=== PATIENT | male | born 1930 | race Caucasian/White ===

== ENCOUNTER 2017-01-15 08:00 | Outpatient (CLI) | payer MEDICARE | END 2017-01-15 08:01 | disposition home or self-care (01) | DX: E11.9 Type 2 diabetes mellitus without complications (principal); Z79.899 Other long term (current) drug therapy; E78.2 Mixed hyperlipidemia; I10 Essential (primary) hypertension ==

== ENCOUNTER 2017-03-17 14:31 | Outpatient (CLI) | payer MEDICARE | END 2017-03-17 14:32 | disposition home or self-care (01) | LOC: SC 14:31 | PROVIDERS: ATTEND Specialist | DX: G47.33 Obstructive sleep apnea (adult) (pediatric) (principal); G25.81 Restless legs syndrome | CPT/HCPCS: 99205; G0463; 99212 ==

== ENCOUNTER 2017-04-06 19:39 | Outpatient (CLI) | payer MEDICARE | END 2017-04-06 19:40 | disposition home or self-care (01) | DX: G47.33 Obstructive sleep apnea (adult) (pediatric) (principal); G47.61 Periodic limb movement disorder ==

== ENCOUNTER 2017-04-28 10:42 | Outpatient (CLI) | payer MEDICARE | END 2017-04-28 10:43 | disposition home or self-care (01) | LOC: SC 10:42 | PROVIDERS: ATTEND Specialist | DX: G47.33 Obstructive sleep apnea (adult) (pediatric) (principal); G47.61 Periodic limb movement disorder; G25.81 Restless legs syndrome; G47.00 Insomnia, unspecified | CPT/HCPCS: 99214; G0463; 99212 ==

== ENCOUNTER 2017-05-11 11:47 | Outpatient (CLI) | payer MEDICARE ==
--- NOTE | 2017-05-11 13:54 | XRAY Report ---
FRONTAL PELVIS: 05/11/2017 CLINICAL INDICATION: Pain. FINDINGS: Frontal views of the pelvis demonstrate mild bilateral hip osteoarthritis. There is no ev idence of pelvic fracture. The sacral ala appear unremarkable. IMPRESSION: MILD OSTEOARTHRITIS. NO EVIDENCE OF FRACTURE. JOB #: [id number] EXT JOB #:[id number]
--- NOTE | 2017-05-11 13:59 | XRAY Report ---
COMPLETE LUMBAR SPINE: 05/11/2017 CLINICAL INDICATION: Back pain. FINDINGS: AP, lateral oblique, coned-down views of the lumbar spine are compared to previous films o f 01/30/2012. There has been progression of degenerative disk and facet disease. Disk space narrowi ng is worst at L5-S1. Vascular calcifications are again noted. No compression fracture or subluxati on is identified. IMPRESSION: PROGRESSION OF DEGENERATIVE CHANGES. JOB #: [id number] EXT JOB #:[id number]
== END 2017-05-11 11:48 | disposition home or self-care (01) ==
LOC: DI.N 11:47
PROVIDERS: ATTEND Internal Medicine
DX: M47.896 Other spondylosis, lumbar region (principal); M51.36 Other intervertebral disc degeneration, lumbar region; M51.37 Other intervertebral disc degeneration, lumbosacral region; M16.0 Bilateral primary osteoarthritis of hip
CPT/HCPCS: 72110; 72170

== ENCOUNTER 2017-05-25 19:32 | Outpatient (CLI) | payer MEDICARE | END 2017-05-25 19:33 | disposition home or self-care (01) | LOC: SC 19:32 | PROVIDERS: ATTEND Specialist | DX: G47.33 Obstructive sleep apnea (adult) (pediatric) (principal); G47.61 Periodic limb movement disorder | CPT/HCPCS: 95811 ==

== ENCOUNTER 2017-06-16 11:19 | Outpatient (CLI) | payer MEDICARE | END 2017-06-16 11:20 | disposition home or self-care (01) | LOC: SC 11:19 | PROVIDERS: ATTEND Specialist | DX: G47.33 Obstructive sleep apnea (adult) (pediatric) (principal); G25.81 Restless legs syndrome; G47.00 Insomnia, unspecified | CPT/HCPCS: 99214; G0463; 99212 ==

== ENCOUNTER 2017-07-28 10:32 | Outpatient (CLI) | payer MEDICARE | END 2017-07-28 10:33 | disposition home or self-care (01) | LOC: SC 10:32 | PROVIDERS: ATTEND Specialist | DX: G47.33 Obstructive sleep apnea (adult) (pediatric) (principal); G25.81 Restless legs syndrome | CPT/HCPCS: 99214; G0463; 99212 ==

== ENCOUNTER 2017-08-20 10:50 | Outpatient (CLI) | payer MEDICARE | END 2017-08-20 10:51 | disposition home or self-care (01) | LOC: LAB.R 10:50 | PROVIDERS: ATTEND Physician Assistant Medical | DX: K13.70 Unspecified lesions of oral mucosa (principal); D64.9 Anemia, unspecified | CPT/HCPCS: 85025; 87070; 87205 ==

== ENCOUNTER 2017-08-20 10:56 | Outpatient (CLI) | payer MEDICARE ==
[2017-08-20 15:30] LABS: BASOPHILS % (AUTO) 0.4 %; EOSINOPHILS % (AUTO) 0.5 %; HGB - HEMOGLOBIN 12.9 g/dL (14.0-18.0); LYMPHOCYTES # (AUTO) 0.9 10^3/uL (1.5-3.5); MEAN CORPUSCULAR HEMOGLOBIN 30.4 pg (27.0-31.0); MEAN CORPUSCULAR VOLUME 89.4 fL (80.0-94.0); MONOCYTES # (AUTO) 0.7 10^3/uL (0.0-1.0); MONOCYTES % (AUTO) 15.8 %; NEUTROPHILS % (AUTO) 64.3 %; RED BLOOD COUNT 4.25 10^6/uL (4.70-6.10); RED CELL DISTRIBUTION WIDTH 13.3 % (12.0-15.0); UNCORRECTED WHITE BLOOD COUNT 4.6 x10^3/uL; WHITE BLOOD COUNT 4.6 x10^3/uL (4.8-10.8)
== END 2017-08-20 10:57 | disposition home or self-care (01) ==
LOC: LAB.R 10:56
PROVIDERS: ATTEND Internal Medicine
DX: D64.9 Anemia, unspecified (principal)
CPT/HCPCS: 85025

== ENCOUNTER 2018-03-02 13:36 | Outpatient (CLI) | payer MEDICARE ==
[2018-03-02 19:22] LABS: BASOPHILS % (AUTO) 0.4 %; EOSINOPHILS # (AUTO) 0.2 10^3/uL (0.0-0.7); EOSINOPHILS % (AUTO) 3.5 %; HGB - HEMOGLOBIN 12.4 g/dL (14.0-18.0); LYMPHOCYTES # (AUTO) 1.6 10^3/uL (1.5-3.5); LYMPHOCYTES % (AUTO) 30.5 %; MEAN CORPUSCULAR HEMOGLOBIN 30.3 pg (27.0-31.0); MEAN CORPUSCULAR HGB CONC 33.7 g/dL (32.0-36.0); MEAN CORPUSCULAR VOLUME 89.8 fL (80.0-94.0); MEAN PLATELET VOLUME 8.1 fL (7.4-11.4); MONOCYTES # (AUTO) 0.4 10^3/uL (0.0-1.0); MONOCYTES % (AUTO) 8.6 %; PLT - PLATELET COUNT 215 10^3/uL (130-450); RED BLOOD COUNT 4.09 10^6/uL (4.70-6.10); RED CELL DISTRIBUTION WIDTH 14.1 % (12.0-15.0); WHITE BLOOD COUNT 5.2 x10^3/uL (4.8-10.8)
[2018-03-02 19:38] LABS: ALBUMIN 3.9 g/dL (3.2-5.5); ALBUMIN/GLOBULIN RATIO 1.4 (1.0-2.2); ALKALINE PHOSPHATASE 61 IU/L (42-121); ALT ALANINE AMINOTRANSFERASE 15 IU/L (10-60); AST ASPARTATE AMINOTRANSFERASE 20 IU/L (10-42); BILIRUBIN,TOTAL 0.7 mg/dL (0.2-1.0); BUN - BLOOD UREA NITROGEN 25 mg/dL (6-20); CALCIUM 9.1 mg/dL (8.5-10.3); CARBON DIOXIDE - CO2 28 mmol/L (21-32); CHLORIDE 105 mmol/L (101-111); CHOL/HDL RATIO 3.4 (<5.0); CHOLESTEROL 176 mg/dL; GFR - MDRD 71 (>89); GLUCOSE 99 mg/dL (70-100); HDL CHOLESTEROL 52 mg/dL; LDL CHOLESTEROL,CALCULATED 112 mg/dL; LDL/HDL RATIO 2.2 (<3.6); SODIUM 139 mmol/L (135-145); TOTAL PROTEIN 6.6 g/dL (6.7-8.2); VLDL CHOLESTEROL 12 mg/dL
[2018-03-02 19:58] LABS: HB2 TOTAL 13.8 g/dL; HEMOGLOBIN A1C 0.56 g/dL; HEMOGLOBIN A1C % 5.9 % (4.6-6.2)
== END 2018-03-02 13:37 | disposition home or self-care (01) ==
LOC: LAB.N 13:36
PROVIDERS: ATTEND Internal Medicine
DX: I45.2 Bifascicular block (principal); I12.9 Hypertensive chronic kidney disease with stage 1 through stage 4 chronic kidney disease, or unspecified chronic kidney disease; N18.9 Chronic kidney disease, unspecified; E88.81 Metabolic syndrome and other insulin resistance; D64.9 Anemia, unspecified; E78.5 Hyperlipidemia, unspecified; M1A.9XX0 Chronic gout, unspecified, without tophus (tophi); Z79.899 Other long term (current) drug therapy
CPT/HCPCS: 36415; 80053; 80061; 83036; 83721; 84443; 84550; 85025

== ENCOUNTER 2018-09-08 08:00 | Outpatient (CLI) | payer MEDICARE ==
[2018-09-08 13:53] LABS: BASOPHILS % (AUTO) 0.5 %; EOSINOPHILS # (AUTO) 0.2 10^3/uL (0.0-0.7); EOSINOPHILS % (AUTO) 5.5 %; HGB - HEMOGLOBIN 13.3 g/dL (14.0-18.0); LYMPHOCYTES # (AUTO) 0.9 10^3/uL (1.5-3.5); LYMPHOCYTES % (AUTO) 27.8 %; MEAN CORPUSCULAR HGB CONC 35.1 g/dL (32.0-36.0); MEAN CORPUSCULAR VOLUME 90.9 fL (80.0-94.0); MEAN PLATELET VOLUME 7.9 fL (7.4-11.4); MONOCYTES # (AUTO) 0.5 10^3/uL (0.0-1.0); MONOCYTES % (AUTO) 13.9 %; NEUTROPHILS # (AUTO) 1.8 10^3/uL (1.5-6.6); NEUTROPHILS % (AUTO) 52.3 %; PLT - PLATELET COUNT 225 10^3/uL (130-450); RED BLOOD COUNT 4.15 10^6/uL (4.70-6.10); RED CELL DISTRIBUTION WIDTH 14.3 % (12.0-15.0); WHITE BLOOD COUNT 3.4 x10^3/uL (4.8-10.8)
[2018-09-08 14:08] LABS: HB2 TOTAL 13.8 g/dL; HEMOGLOBIN A1C 0.5 g/dL; HEMOGLOBIN A1C % 5.5 % (4.6-6.2)
[2018-09-08 14:09] LABS: CALCIUM 9.1 mg/dL (8.5-10.3); CREATININE 1.1 mg/dL (0.6-1.2)
== END 2018-09-08 23:59 | disposition home or self-care (01) ==
LOC: LAB.N 08:00
PROVIDERS: ATTEND Internal Medicine
DX: D64.9 Anemia, unspecified (principal); I10 Essential (primary) hypertension; E88.81 Metabolic syndrome and other insulin resistance; Z79.899 Other long term (current) drug therapy
CPT/HCPCS: 36415; 80048; 83036; 85025

== ENCOUNTER 2019-05-12 08:00 | Outpatient (CLI) | payer MEDICARE ==
[2019-05-12 12:08] LABS: BASOPHILS % (AUTO) 0.5 %; EOSINOPHILS # (AUTO) 0.2 10^3/uL (0.0-0.7); EOSINOPHILS % (AUTO) 4.8 %; HGB - HEMOGLOBIN 11.9 g/dL (14.0-18.0); LYMPHOCYTES % (AUTO) 22.9 %; MEAN CORPUSCULAR HEMOGLOBIN 29.8 pg (27.0-31.0); MEAN CORPUSCULAR HGB CONC 32.4 g/dL (32.0-36.0); MEAN PLATELET VOLUME 9.7 fL (7.4-11.4); MONOCYTES # (AUTO) 0.5 10^3/uL (0.0-1.0); MONOCYTES % (AUTO) 10.6 %; NEUTROPHILS # (AUTO) 2.7 10^3/uL (1.5-6.6); PLT - PLATELET COUNT 202 10^3/uL (130-450); RED BLOOD COUNT 3.99 10^6/uL (4.70-6.10); RED CELL DISTRIBUTION WIDTH 13.1 % (12.0-15.0); WHITE BLOOD COUNT 4.4 x10^3/uL (4.8-10.8)
[2019-05-12 12:34] LABS: ALBUMIN 3.8 g/dL (3.2-5.5); ALBUMIN/GLOBULIN RATIO 1.5 (1.0-2.2); ALKALINE PHOSPHATASE 56 IU/L (42-121); ALT ALANINE AMINOTRANSFERASE 17 IU/L (10-60); AST ASPARTATE AMINOTRANSFERASE 20 IU/L (10-42); BILIRUBIN,TOTAL 1.2 mg/dL (0.2-1.0); BUN - BLOOD UREA NITROGEN 18 mg/dL (6-20); CALCIUM 9.3 mg/dL (8.5-10.3); CARBON DIOXIDE - CO2 29 mmol/L (21-32); CHLORIDE 104 mmol/L (101-111); CHOL/HDL RATIO 3.3 (<5.0); CHOLESTEROL 204 mg/dL; CREATININE 1.2 mg/dL (0.6-1.2); GFR - MDRD 57 (>89); GLUCOSE 95 mg/dL (70-100); HDL CHOLESTEROL 61 mg/dL; LDL CHOLESTEROL,CALCULATED 130 mg/dL; LDL/HDL RATIO 2.1 (<3.6); SODIUM 143 mmol/L (135-145); TOTAL PROTEIN 6.4 g/dL (6.7-8.2); URIC ACID 6.4 mg/dL (2.6-7.2); VLDL CHOLESTEROL 13 mg/dL
[2019-05-12 12:35] LABS: HB2 TOTAL 12.7 g/dL; HEMOGLOBIN A1C 0.55 g/dL; HEMOGLOBIN A1C % 6.1 % (4.6-6.2)
== END 2019-05-12 23:59 | disposition home or self-care (01) ==
LOC: LAB.N 08:00
PROVIDERS: ATTEND Nurse Practitioner
DX: I45.2 Bifascicular block (principal); D64.9 Anemia, unspecified; E88.81 Metabolic syndrome and other insulin resistance; M1A.9XX0 Chronic gout, unspecified, without tophus (tophi); N18.9 Chronic kidney disease, unspecified; E78.5 Hyperlipidemia, unspecified
CPT/HCPCS: 36415; 80053; 80061; 83036; 83721; 84443; 84550; 85025

== ENCOUNTER 2020-12-04 09:14 | Outpatient (CLI) | payer MEDICARE, OTHER ==
[2020-12-04 12:37] LABS: BASOPHILS % (AUTO) 0.2 %; EOSINOPHILS # (AUTO) 0.2 10^3/uL (0.0-0.7); EOSINOPHILS % (AUTO) 4.4 %; HCT - HEMATOCRIT 40.8 % (42.0-52.0); HGB - HEMOGLOBIN 13.4 g/dL (14.0-18.0); LYMPHOCYTES # (AUTO) 1.3 10^3/uL (1.5-3.5); LYMPHOCYTES % (AUTO) 30.5 %; MEAN CORPUSCULAR HEMOGLOBIN 30.8 pg (27.0-31.0); MEAN CORPUSCULAR HGB CONC 32.8 g/dL (32.0-36.0); MEAN CORPUSCULAR VOLUME 93.8 fL (80.0-94.0); MEAN PLATELET VOLUME 9.8 fL (7.4-11.4); MONOCYTES # (AUTO) 0.5 10^3/uL (0.0-1.0); MONOCYTES % (AUTO) 12.4 %; NEUTROPHILS # (AUTO) 2.3 10^3/uL (1.5-6.6); NEUTROPHILS % (AUTO) 52.3 %; PLT - PLATELET COUNT 235 10^3/uL (130-450); RED BLOOD COUNT 4.35 10^6/uL (4.70-6.10); WHITE BLOOD COUNT 4.4 x10^3/uL (4.8-10.8)
[2020-12-04 12:55] LABS: ALBUMIN 4.1 g/dL (3.2-5.5); ALBUMIN/GLOBULIN RATIO 1.5 (1.0-2.2); ALKALINE PHOSPHATASE 70 IU/L (42-121); ALT ALANINE AMINOTRANSFERASE 15 IU/L (10-60); AST ASPARTATE AMINOTRANSFERASE 20 IU/L (10-42); BUN - BLOOD UREA NITROGEN 26 mg/dL (6-20); CALCIUM 9.5 mg/dL (8.5-10.3); CARBON DIOXIDE - CO2 29 mmol/L (21-32); CHLORIDE 102 mmol/L (101-111); CHOL/HDL RATIO 3.3 (<5.0); CHOLESTEROL 213 mg/dL; CREATININE 1.4 mg/dL (0.6-1.2); GFR - MDRD 48 (>89); GLUCOSE 100 mg/dL (70-100); HDL CHOLESTEROL 64 mg/dL; LDL CHOLESTEROL,CALCULATED 134 mg/dL; LDL/HDL RATIO 2.1 (<3.6); POTASSIUM 4.3 mmol/L (3.5-5.0); SODIUM 140 mmol/L (135-145); TOTAL PROTEIN 6.9 g/dL (6.7-8.2); TRIGLYCERIDES 77 mg/dL; URIC ACID 6.9 mg/dL (2.6-7.2); VLDL CHOLESTEROL 15 mg/dL
[2020-12-04 13:20] LABS: THYROID STIMULATING HORMONE 1.15 uIU/mL (0.34-5.60)
== END 2020-12-04 09:15 | disposition home or self-care (01) ==
LOC: LAB.N 09:14
PROVIDERS: ATTEND Family Medicine
DX: I10 Essential (primary) hypertension (principal); E78.5 Hyperlipidemia, unspecified; R00.1 Bradycardia, unspecified; D64.9 Anemia, unspecified; M1A.9XX0 Chronic gout, unspecified, without tophus (tophi)
CPT/HCPCS: 36415; 80053; 80061; 83721; 84443; 84550; 85025

== ENCOUNTER 2021-06-13 17:24 | Inpatient (IN) | payer MEDICARE, OTHER ==
[2021-06-13 18:48] LABS: BASOPHILS % (AUTO) 0.2 %; HCT - HEMATOCRIT 39.6 % (42.0-52.0); HGB - HEMOGLOBIN 13.8 g/dL (14.0-18.0); LYMPHOCYTES # (AUTO) 0.6 10^3/uL (1.5-3.5); MEAN CORPUSCULAR HEMOGLOBIN 30.7 pg (27.0-31.0); MEAN CORPUSCULAR HGB CONC 34.8 g/dL (32.0-36.0); MONOCYTES # (AUTO) 0.3 10^3/uL (0.0-1.0); MONOCYTES % (AUTO) 4.1 %; NEUTROPHILS # (AUTO) 5.2 10^3/uL (1.5-6.6); NEUTROPHILS % (AUTO) 84.9 %; PLT - PLATELET COUNT 238 10^3/uL (130-450); RED CELL DISTRIBUTION WIDTH 40.3 % (12.0-15.0); WHITE BLOOD COUNT 6.1 x10^3/uL (4.8-10.8)
--- NOTE | 2021-06-13 19:09 | XRAY Report ---
PROCEDURE: Chest 1 View X-Ray INDICATIONS: chest pain TECHNIQUE: One view of the chest was acquired. COMPARISON: None FINDINGS: Surgical changes and devices: None. Lungs and pleura: No pleural effusions or pneumothorax. Lungs are clear. Mediastinum: Mediastinal contours appear normal. Heart size is normal. Bones and chest wall: No suspicious bony lesions. Overlying soft tissues appear unremarkable. IMPRESSION: Diffuse bilateral airspace opacities are present. The appearance is consistent with a di ffuse infectious process or CHF. Chronic changes are also possible, however no prior images are avail able for comparison. Reviewed by: Asael Viramontes on 06/13/2021 7:08 PM PDT Approved by: Asael Viramontes on 06/13/2021 7:08 PM PDT Station ID: [id number]
[2021-06-13 19:35] LABS: BILIRUBIN,TOTAL 1.4 mg/dL (0.2-1.0); CALCIUM 8.6 mg/dL (8.5-10.3); CREATININE 1.5 mg/dL (0.6-1.2); POTASSIUM 4.1 mmol/L (3.5-5.0)
[2021-06-13 19:36] LABS: ALBUMIN 3.3 g/dL (3.2-5.5); ALBUMIN/GLOBULIN RATIO 0.9 (1.0-2.2); TOTAL PROTEIN 6.9 g/dL (6.7-8.2)
[2021-06-13] MEDS ORDERED: AZITHROMYCIN INJ 500 MG in SODIUM CHLORIDE 0.9% 250 ML IV STA (19:43)
[2021-06-13] MEDS ORDERED: oxyCODONE 5 MG TABLET PO PRN (19:48)
[2021-06-13] MEDS ORDERED: ACETAMINOPHEN 325 MG TABLET PO PRN (19:48)
[2021-06-13] MEDS ORDERED: ONDANSETRON ODT 4 MG TABLET TL PRN (19:48)
[2021-06-13] MEDS ORDERED: SODIUM CHLORIDE FLUSH 0.9% 10 ML SYRINGE IVP PRN (19:48)
[2021-06-13] MEDS ORDERED: ONDANSETRON 4 MG/2 ML VIAL IVP PRN (19:48)
[2021-06-13 20:09] LABS: CORONAVIRUS 229E-RESP PCR NOT DETECTED; CORONAVIRUS HKU1-RESP PCR NOT DETECTED; CORONAVIRUS NL63-RESP PCR NOT DETECTED; CORONAVIRUS OC43-RESP PCR NOT DETECTED
[2021-06-13 20:10] LABS: B. PARAPERTUSSIS- RESP PCR PAN NOT DETECTED; B. PERTUSSIS- RESP PCR PANEL NOT DETECTED; C. PNEUMONIAE- RESP PCR PANEL NOT DETECTED; HUMAN METAPNEUMOVIRUS NOT DETECTED; INFLUENZA A- RESP PCR PANEL NOT DETECTED; INFLUENZA B - RESP PCR PANEL NOT DETECTED; M. PNEUMONIAE- RESP PCR PANEL NOT DETECTED; PARAINFLUENZA VIRUS 1 NOT DETECTED; PARAINFLUENZA VIRUS 2 NOT DETECTED; PARAINFLUENZA VIRUS 3 NOT DETECTED; PARAINFLUENZA VIRUS 4 NOT DETECTED; RHINOVIRUS/ENTEROVIRUS NOT DETECTED; RSV- RESP PCR PANEL NOT DETECTED; SARS-CoV-2 -RESP PCR PANEL DETECTED
[2021-06-13] MEDS ORDERED: LACTATED RINGERS 1,000 ML IV ONE (21:32)
--- NOTE | 2021-06-13 21:37 | HISTORY & PHYSICAL EXAMINATION ---
Chief Complaint - Chief Complaint Chief Complaint: cough, fatigue, sob History of Present Illness - Admitted From Admitted From:: home - History Obtained From Records Reviewed: [facility] History obtained from: [facility] Exam Limitations: patient is demented, sob - History of Present Illness HPI Comment/Other: This is an 89-year-old white male who has been to his second for about a year. He has a history of mild cognitive deficit that has been getting worse over the last 2 weeks. He has been ill with chest congestion, cough, fatigue, myalgias and has been getting so short of breath his sent him to the emergency room today. he's getting confused and he can't find his words. No focal deficits or falls. His obtained invermectin and quinine from a [employer] store and has been giving it to him for approximately 4 to 5 days. He is unvaccinated because he doesn't trust the science behind them. Evaluation in the emergency room has a temperature of 37.8, heart rate of 66, blood pressure 148/99, respiratory rate 22 and he is 85% on room air. He is requiring 4 L to maintain O2 sats at 95%. Nurse practitioner Saúl found him alert but with labored breathing. Does not have distress. Lungs are clear bilaterally. He has a regular rate and rhythm with a 3 out of 5 systolic murmur. Skin color is warm, dry. Sodium is 132. BUN 28, creatinine 1.5. His usual is 1.2. Total bili 1.4. AST 48. Troponin 22.9. White cell count is 6.1, hemoglobin 13.8. Chest x-ray has bilateral alveolar infiltrates compatible with either pneumonia or congestive heart failure. His PCR for Covid 19 is pending. Emergency room is asking us to admit this patient for probable Covid pneumonia or viral pneumonia. History - Past Medical History Cardiovascular: reports: Hypertension, High cholesterol, Arrhythmia (chronic RBBB w LAFB, bradycardia), Other (morbid obesity, chronic leg edema) Respiratory: reports: Sleep apnea, CPAP use, Tuberculosis (Positive PPD) Neuro: reports: Dementia, Other (restless leg syndrome For which he takes carbidopa he says) Endocrine/Autoimmune: reports: Other (insulin resistence w A1c 6.1%) GI: reports: GERD, Hemorrhoids. denies: Diverticulitis (Diverticulosis) : reports: Benign prostate hypertrophy, Renal insuffiency HEENT: reports: Other (Chronic allergic rhinitis) Musculoskeletal: reports: Gout, Other (osteoma frontal bone) Derm: reports: Herpes zoster, Other (Skin cancer with excisions) - Past Surgical History General: reports: Other (Right inguinal hernia age 15, hemorhoidectomy 2007) Ortho: reports: Other (R ankle ORIF, L elbow ORIF, L leg bone spur age 20, L hand ORIF 1974) Derm: reports: Skin cancer surgery, Other (lipoma excision 2003) - Family & Social History Family History Comment/Other: Mother age 62 of pulmonary embolus. Had multiple medical problems that he could not remember. Dad in a motor veh icle accident with a broken neck. Also had multiple medical problems that he cannot remember. Sister had breast cancer. 1 Son was stillborn. 1 son age 13 of pneumonia. 1 daughter in a motor vehicle accident. 2 daughters still alive and healthy Living arrangement: At home Living Situation: With spouse/s.o. Social History Notes: He is retired . Came to the [place] because he was stationed here and then never left. to his first for close to 64 years before she . He met his second in the same [place] that his first and he used to go to. He and his second have been a little over a year. They live in their own home. He never smoked. He states that he never had a problem with alcohol abuse and rarely drinks. No history of recreational substance abuse - Substance History Use: Uses substance without health or social issues: NONE Abuse: Recurrent use of substance despite neg consequences: NONE Dependence: Experiences withdrawal or developed tolerances: NONE - POLST Patient has POLST: No POLST Status: Full Code Meds/Allgy - Home Medications Home Medications: Ambulatory Orders Medication Instructions Recorded Confirmed Carbidopa/Levodopa 1 each PO HS 07/11/13 02/13/15 [Carbidopa-Levodopa 25-100 Tab] Esomeprazole Magnesium [Nexium] 40 mg PO DAILY 07/11/13 02/13/15 Finasteride 5 mg PO DAILY 07/11/13 02/13/15 Pravastatin Sodium [Pravachol] 40 mg PO HS 07/11/13 02/13/15 Metoprolol Tartrate 25 mg PO BID 02/13/15 02/13/15 - Allergies Allergies/Adverse Reactions: Allergies Allergy/AdvReac Type Severity Reaction Status Date / Time bacitracin Allergy Rash Verified 06/13/21 17:47 [From Neosporin ([id number])] bacitracin zinc * Allergy Rash Verified 06/13/21 17:47 [From Neosporin ([id number])] Horse/Equine Containing Allergy Rash Verified 06/13/21 17:47 Products neomycin sulfate * Allergy Rash Verified 06/13/21 17:47 [From Neosporin ([id number])] polymyxin B Allergy Rash Verified 06/13/21 17:47 [From Neosporin ([id number])] Review of Systems - Constitutional Constitutional: reports: Fatigue, Fever, Malaise, Weakness, Poor appetite - Eyes Eyes: reports: Corrective lenses. denies: Pain, Irritation, Amaurosis, Blurred vision - Ears, Nose & Throat Ears, Nose & Throat: reports: Hearing loss, Nasal discharge, Postnasal drainage, Sore throat, Hoarseness. denies: Ear pain, Hearing aids, Tinnitus, Vertigo - Cardiovascular Cariovascular: reports: Edema, Exertional dyspnea, Decr. exercise tolerance. denies: Irregular heart rate, Palpitations, Chest pain - Respiratory Respiratory: reports: Cough, Sputum production, Wheezing, Snoring, SOB at rest, SOB with exertion, Apnea. denies: Hemoptysis - Gastrointestinal Gastrointestinal: denies: Abdominal pain, Abdominal distention, Constipation, Diarrhea, Change in bowel habits, Rectal bleeding - Genitourinary Genitourinary: denies: Dysuria, Frequency, Urgency - Musculoskeletal Musculoskeletal: reports: Muscle aches, Stiffness. denies: Joint pain - Integumentary Integumentary: denies: Rash, Pruritis - Neurological Neurological: reports: General weakness, Memory problems (worsening acutely in the last 2 weeks. 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 negative: Stiff neck Respiratory: positive: No respiratory distress. negative: Wheezes, Rales, Rhonchi Cardiovascular: positive: Regular rate & rhythm, Systolic murmur. negative: Gallop/S4, Friction rub Peripheral Pulses: positive: 1+ Abdomen: positive: Non-tender, No organomegaly, Nml bowel sounds, No distention Skin: positive: Warm, Dry, Pallor Extremities: positive: Full ROM, Pedal edema Neurologic/Psychiatric: positive: Oriented x3, CN's nml (2-12), Motor nml, Sensation nml, Slurred/abnml speech (Occasional word hesitancy. Stops in mid sentence and cannot remember what he wants to say. Sometimes cannot remember the word he wants to use. Sometimes forgetful of the date, and cannot pinpoint in time what is been happening.) Conclusion/Plan - Problem List (1) COVID-19 virus infection Conclusion/Plan: Presenting as cough, shortness of breath, fatigue, confusion. Some hypoxia. Plan: Inpatient status Remdesivir 5 days Decadron 10 days Lovenox for DVT prophylaxis (2) Hypoxia Conclusion/Plan: Started with nasal cannula oxygen. That seems to be maintaining him well. I did discuss advance care planning with him. I did describe worsening respiratory failure and some Covid patients. He is willing to have high flow nasal cannula, BiPAP, and intubation if necessary. I have explained to him that if we were unsuccessful in maintaining his O2 sats with appropriate ventilator s ettings here, he may need transfer to the [facility] and he is okay with that. (3) Acute kidney injury superimposed on chronic kidney disease Conclusion/Plan: Baseline creatinine and GFR usually have about chronic kidney disease stage III. Creatinine slightly worse today. May have some dehydration due to lack of p.o. intake and anorexia. Plan: IV fluids Recheck BMP in the morning (4) Cognitive deficits Conclusion/Plan: Daughter had spoken to the emergency room provider to say the data been having some cognitive decline over the last year but more severe over the last couple of weeks. Daughter has been very concerned about his care with his new . She states that she will be filing an Adult Protective Services request for evaluation. On roldan's exam, he is aware of where he is but cannot tell me what brings him here. He is able to describe that he is sick, has some type of infection but cannot find a work for Covid. Throughout his exam, frequent pauses as he struggled to find a word and could not. Or struggle to complete a sentence and could not. However he was able to hear me and process and follow my 1-2 step commands when necessary. (5) Elevated troponin Conclusion/Plan: Repeat troponins in a few hours, and in the morning.Anticipate that these troponins will be flat or declining and most likely due to enzyme leak and not a cardiac event. (6) Obstructive sleep apnea on CPAP Conclusion/Plan: He does not know if he brought with him. I will have to ask nursing over the emergency room of any equipment came with him. He also admits that he does not like using the mask and he does not know if he would comply with that when he went to sleep. He does not mind the oxygen were giving him by nasal cannula. (7) Hypertension Conclusion/Plan: For which she takes a beta-leonor. We will resume metoprolol but hold it if his pulse gets below 60. Qualifiers: Hypertension type: primary hypertension Qualified Code(s): I10 - Essential (primary) hypertension (8) Restless leg syndrome Conclusion/Plan: Resume home meds (9) BPH (benign prostatic hyperplasia) Conclusion/Plan: resume finasterid Qualifiers: Lower urinary tract symptom presence: symptoms present - Lab Results Lab results reviewed: Yes Fish Bones: 06/13/21 18:31 06/13/21 18:31 - Diagnostic Imaging Results Diagnostic Imaging Results: positive: Final report reviewed Diagnostic Imaging Results Comments: Chest x-ray with diffuse bilateral airspace opacities. No other images available for comparison Core Measures - Anticipated LOS I expect patient to be DC'd or transferred within 96 hours.: Yes - DVT/VTE - Prophylaxis VTE/DVT Device ordered at admit?: Yes
--- NOTE | 2021-06-13 21:37 | ED Physician Documentation ---
History of Present Illness - Stated complaint Stated Complaint: BODY PX/SORE THROAT/HEADACHE - Chief complaint Chief Complaint: Resp - Additonal information Additional information: 89-year-old male presents the emergency department for evaluation of nearly 1 week of cough, congestion and shortness of air. He feels like his oxygen levels are low though he does not have the ability to test at home. He has not yet been vaccinated for COVID-19 because he simply does not believe in it. This gentleman presents alert but labored. On room air his saturations are 85%. 4 L nasal cannula improves him to 90 to 91%. He is denying chest pain. No abdominal pain nausea or vomiting. Denies loss of taste or smell. Medical history most significant for hyperlipidemia and hypertension. He denies history of coronary artery disease or previous stroke, COPD or asthma. No tobacco use 1939: I have spoken with the patient's daughter Estefany Dawn Who reports to this provider that she and her sister are making an [facility]. They are concerned because though the patient is not vaccinated for COVID-19 his has been giving him quinine as well as ivermectin obtained from an agriculture store at home for at least the last few days. Review of Systems Constitutional: reports: Fever, Chills, Myalgias, Fatigue Eyes: reports: Reviewed and negative Ears: reports: Reviewed and negative Nose: reports: Congestion Throat: reports: Reviewed and negative Cardiac: reports: Palpitations. denies: Pedal edema, Calf pain Respiratory: reports: Dyspnea, Cough. denies: Hemoptysis, Wheezing GI: denies: Abdominal Pain, Nausea, Vomiting : reports: Reviewed and negative Skin: reports: Reviewed and negative PD PAST MEDICAL HISTORY - Past Medical History Cardiovascular: Hypertension, High cholesterol GI: GERD - Past Surgical History Past Surgical History: Yes - Present Medications Home Medications: Ambulatory Orders Medication Instructions Recorded Confirmed Carbidopa/Levodopa 1 each PO HS 07/11/13 02/13/15 [Carbidopa-Levodopa 25-100 Tab] Esomeprazole Magnesium [Nexium] 40 mg PO DAILY 07/11/13 02/13/15 Finasteride 5 mg PO DAILY 07/11/13 02/13/15 Pravastatin Sodium [Pravachol] 40 mg PO HS 07/11/13 02/13/15 Metoprolol Tartrate 25 mg PO BID 05/12/15 05/12/15 - Allergies Allergies/Adverse Reactions: Allergies Allergy/AdvReac Type Severity Reaction Status Date / Time bacitracin Allergy Rash Verified 06/13/21 17:47 [From Neosporin ([id number])] bacitracin zinc * Allergy Rash Verified 06/13/21 17:47 [From Neosporin ([id number])] Horse/Equine Containing Allergy Rash Verified 06/13/21 17:47 Products neomycin sulfate * Allergy Rash Verified 06/13/21 17:47 [From Neosporin ([id number])] polymyxin B Allergy Rash Verified 06/13/21 17:47 [From Neosporin ([id number])] - Social History Does the pt smoke?: No Smoking Status: Never smoker Does the pt drink ETOH?: Yes Does the pt have substance abuse?: No - Immunizations Immunizations are current?: Yes PD ED PE EXPANDED - General General: Alert - Neck Neck: Supple w/out meningeal sx. No: Adenopathy - Cardiac Cardiac: Regular Rate, Murmur Present (3/5 systolic murmur), Radial strong equal, Cap refill < 2 sec - Respiratory Respiratory: Clear to ausultation michelle. No: Distress, Labored - Abdomen Abdomen: Normal Bowel sounds. No: Tender to palpation - Derm Derm: Normal color, Warm and dry. No: Rash - Extremities Extremities: Normal. No: Deformity, Tenderness Results - Vitals Vitals: Vital Signs - 24 hr 06/13/21 06/13/21 06/13/21 17:39 18:34 20:00 Temperature 37.8 C Heart Rate 66 52 L 50 L Respiratory 22 14 16 Rate Blood Pressure 148/99 H 118/62 115/69 O2 Saturation 85 L 95 98 Oxygen O2 Source Nasal cannula Oxygen Flow Rate 4 - EKG (time done) 1823 Rate: Rate (enter#) (54) Rhythm: NSR [place]: Normal Intervals: Prolonged UT, Prolonged QT, RBBB QRS: LVH Ischemia: Normal ST segments Compare to prior EKG: Changed from prior EKG Computer interpretation: Agree with computer - Labs Labs: Laboratory Tests 06/13/21 06/13/21 06/13/21 18:31 18:31 18:31 WBC 6.1 RBC 4.50 L Hgb 13.8 L Hct 39.6 L MCV 88.0 MCH 30.7 MCHC 34.8 RDW 40.3 H Plt Count 238 MPV 9.0 Neut # (Auto) 5.2 Lymph # (Auto) 0.6 L [place] # (Auto) 0.3 Eos # (Auto) 0.0 Baso # (Auto) 0.0 Absolute Nucleated RBC 0.00 Nucleated RBC % 0.0 Sodium 132 L Potassium 4.1 Chloride 94 L Carbon Dioxide 26 Anion Gap 12.0 BUN 28 H Creatinine 1.5 H Estimated GFR (MDRD) 44 L Glucose 122 H Calcium 8.6 Total Bilirubin 1.4 H AST 48 H ALT 27 Alkaline Phosphatase 48 Troponin I High Sens 22.9 H* Total Protein 6.9 Albumin 3.3 Globulin 3.6 Albumin/Globulin Ratio 0.9 L Lipase 67 H Nasal Adenovirus (PCR) Nasal B. parapertussis DNA (PCR) Nasal Coronavir 229E PCR Nasal Coronavir HKU1 PCR Nasal Coronavir NL63 PCR Nasal Coronavir OC43 PCR Nasal Enterovir/Rhinovir PCR Nasal Influenza B PCR Nasal Influenza A PCR Nasal Parainfluen 1 PCR Nasal Parainfluen 2 PCR Nasal Parainfluen 3 PCR Nasal Parainfluen 4 PCR Nasal RSV (PCR) Nasal B.pertussis DNA PCR Nasal C.pneumoniae (PCR) [place] Human Metapneumo PCR Nasal M.pneumoniae (PCR) Nasal SARS-CoV-2 (PCR) 06/13/21 19:30 WBC RBC Hgb Hct MCV MCH MCHC RDW Plt Count MPV Neut # (Auto) Lymph # (Auto) [place] # (Auto) Eos # (Auto) Baso # (Auto) Absolute Nucleated RBC Nucleated RBC % Sodium Potassium Chloride Carbon Dioxide Anion Gap BUN Creatinine Estimated GFR (MDRD) Glucose Calcium Total Bilirubin AST ALT Alkaline Phosphatase Troponin I High Sens Total Protein Albumin Globulin Albumin/Globulin Ratio Lipase Nasal Adenovirus (PCR) NOT DETECTED Nasal B. parapertussis DNA (PCR) NOT DETECTED Nasal Coronavir 229E PCR NOT DETECTED Nasal Coronavir HKU1 PCR NOT DETECTED Nasal Coronavir NL63 PCR NOT DETECTED Nasal Coronavir OC43 PCR NOT DETECTED Nasal Enterovir/Rhinovir PCR NOT DETECTED Nasal Influenza B PCR NOT DETECTED Nasal Influenza A PCR NOT DETECTED Nasal Parainfluen 1 PCR NOT DETECTED Nasal Parainfluen 2 PCR NOT DETECTED Nasal Parainfluen 3 PCR NOT DETECTED Nasal Parainfluen 4 PCR NOT DETECTED Nasal RSV (PCR) NOT DETECTED Nasal B.pertussis DNA PCR NOT DETECTED Nasal C.pneumoniae (PCR) NOT DETECTED [place] Human Metapneumo PCR NOT DETECTED Nasal M.pneumoniae (PCR) NOT DETECTED Nasal SARS-CoV-2 (PCR) DETECTED A - Rads (name of study) CXR Radiology: Final report received (Bilateral airspace opacities are present. The appearance is consistent with a diffuse infectious process or CHF. Chronic changes are also possible.) PD MEDICAL DECISION MAKING - ED course Complexity details: reviewed results, d/w patient ED course: This is an 89-year-old male who carries a history of hypertension as well as hyperlipidemia and now some newer memory changes over the last year who presents with 1 week of dry cough, congestion shortness of air fatigue and myalgias. He is not vaccinated for COVID-19 and his respiratory PCR is positive today in the emergency department. He presented hypoxic on room air with a saturation of 85%. 4 L nasal cannula brought a rise in his saturations to about 90 to 93%. His chest x-ray is suggestive of diffuse bilateralopacities. Given the presence of COVID-19 infection and hypoxia he will be admitted to the hospital for further treatment. pt does wish to be a DNR. I have prescribed azithromycin here in the emergency department. He will receive steroids as well as remdesivir with the hospitalist. I have discussed this case with Dr. Elizabeth who agrees to admit the patient. It should be noted that I did discuss this case with the patient's daughter Ade who indicates to me that the patient's has been giving him agricultural ivermectin as well as quinine at home for treatment of what they suspected was likely COVID-19. His daughter indicated to me that they would be placing an APS referral for all on his behalf. Departure - Departure Disposition: 66 [facility] DC/Xfer Clinical Impression: Hypoxia, COVID-19 virus infection Pneumonia Qualifiers: Pneumonia type: due to unspecified organism Laterality: bilateral Lung location: unspecified part of lung Qualified Code(s): J18.9 - Pneumonia, unspecified organism Condition: Serious
[2021-06-13] MEDS: SODIUM CHLORIDE FLUSH 0.9% 10 ML SYRINGE IVP SCH (22:05)
[2021-06-13] MEDS: LACTATED RINGERS 1,000 ML IV SCH (22:05)
[2021-06-13] MEDS ORDERED: CHERRY SYRUP 10 ML UDC PO ONE (23:28)
[2021-06-13] MEDS ORDERED: DEXAMETHASONE 10 MG/ML VIAL PO SCH (23:38)
[2021-06-14 06:27] LABS: HCT - HEMATOCRIT 35.3 % (42.0-52.0); HGB - HEMOGLOBIN 12.2 g/dL (14.0-18.0); LYMPHOCYTES # (AUTO) 0.4 10^3/uL (1.5-3.5); MEAN CORPUSCULAR HEMOGLOBIN 30.3 pg (27.0-31.0); MEAN CORPUSCULAR HGB CONC 34.6 g/dL (32.0-36.0); MEAN CORPUSCULAR VOLUME 87.6 fL (80.0-94.0); MEAN PLATELET VOLUME 8.9 fL (7.4-11.4); MONOCYTES # (AUTO) 0.1 10^3/uL (0.0-1.0); MONOCYTES % (AUTO) 2.8 %; NEUTROPHILS # (AUTO) 4.1 10^3/uL (1.5-6.6); NEUTROPHILS % (AUTO) 88.6 %; PLT - PLATELET COUNT 226 10^3/uL (130-450); RED BLOOD COUNT 4.03 10^6/uL (4.70-6.10); RED CELL DISTRIBUTION WIDTH 12.7 % (12.0-15.0); WHITE BLOOD COUNT 4.6 x10^3/uL (4.8-10.8)
[2021-06-14 06:44] LABS: CALCIUM 8.4 mg/dL (8.5-10.3); CREATININE 1.2 mg/dL (0.6-1.2); CRP - C-REACTIVE PROTEIN 18.2 mg/dL (0-1.0); POTASSIUM 4.6 mmol/L (3.5-5.0)
[2021-06-14] MEDS ORDERED: NON FORMULARY MED (Remdesivir 200 MG) IVP ONE (07:00)
[2021-06-14] MEDS ORDERED: METOPROLOL TARTRATE 25 MG TABLET PO SCH (09:00)
[2021-06-14] MEDS ORDERED: DEXAMETHASONE 10 MG/ML VIAL PO SCH (09:00)
[2021-06-14] MEDS ORDERED: REMDESIVIR 100MG VIAL 200 MG in SODIUM CHLORIDE 0.9% 250 ML IV ONE (09:00)
[2021-06-14] MEDS: ENOXAPARIN 40 MG/0.4 ML SYRINGE SUBQ SCH (09:08)
[2021-06-14] MEDS: DEXAMETHASONE 4 MG/ML VIAL IVP SCH (09:09)
[2021-06-14] MEDS: FINASTERIDE 5 MG TABLET PO SCH (09:11)
[2021-06-14] MEDS: LACTATED RINGERS 1,000 ML IV SCH (10:39)
[2021-06-14] MEDS: SODIUM CHLORIDE FLUSH 0.9% 10 ML SYRINGE IVP SCH ×2 (10:40→18:11)
--- NOTE | 2021-06-14 11:40 | PROVIDER PROGRESS NOTE ---
Subjective - Prog Note Date Prog Note Date: 06/14/21 Prog Note Time: 11:38 - Subjective Pt reports feeling: No change (sitting up in chair, no acute distress, no coughing while I was in there, has bag at bedside w/ tissues "cough mostly dry", feels ~ 30% of his best, did eat breakfast,) Current Medications - Current Medications Current Medications: Active Medications Generic Name Dose Route Start Last Admin Trade Name Freq PRN Reason Stop Dose Admin Acetaminophen 650 mg 06/13/21 19:48 Acetaminophen 325 Mg Tablet PO Q4HR PRN Pain 1 to 4 Cholecalciferol 50 mcg 06/14/21 11:00 Cholecalciferol 25 Mcg Tablet PO DAILY JORDIN Dexamethasone 6 mg 06/14/21 07:45 06/14/21 09:09 Dexamethasone 4 Mg/Ml Vial IVP 6 mg DAILY JORDIN Administration Enoxaparin Sodium 40 mg 06/14/21 09:00 06/14/21 09:08 Enoxaparin 40 Mg/0.4 Ml Syringe SUBQ 40 mg DAILY JORDIN Administration Finasteride 5 mg 06/14/21 09:00 06/14/21 09:11 Finasteride 5 Mg Tablet PO 5 mg DAILY JORDIN Administration Lactated Ringer's 1,000 mls @ 100 mls/hr 06/13/21 20:00 06/14/21 10:39 Lr IV 06/14/21 15:59 100 mls/hr .Q10H JORDIN Administration Azithromycin 500 mg/ Sodium 250 mls @ 250 mls/hr 06/14/21 22:00 Chloride IV 06/15/21 22:59 Q24H JORDIN Remdesivir 100 mg/ Sodium 100 mls @ 200 mls/hr 06/15/21 09:00 Chloride IV 06/18/21 09:29 DAILY JORDIN Metoprolol Tartrate 25 mg 06/14/21 09:00 06/14/21 08:27 Metoprolol Tartrate 25 Mg Tablet PO Not Given BID JORDIN Ondansetron HCl 4 mg 06/13/21 19:48 Ondansetron Odt 4 Mg Tablet TL Q6HR PRN Nausea / Vomiting Ondansetron HCl 4 mg 06/13/21 19:48 Ondansetron 4 Mg/2 Ml Vial IVP Q6HR PRN Nausea / Vomiting Oxycodone HCl 5 mg 06/13/21 19:48 Oxycodone 5 Mg Tablet PO Q4HR PRN Pain 5 to 7 Sodium Chloride 10 ml 06/13/21 19:48 Sodium Chloride Flush 0.9% 10 Ml Syringe IVP PRN PRN NEEDED PER PROVIDER ORDERS Sodium Chloride 10 ml 06/14/21 01:00 06/14/21 10:40 Sodium Chloride Flush 0.9% 10 Ml Syringe IVP 10 ml 0100,0900,1700 JORDIN Administration Carbidopa/Levodopa [Carbidopa-Levodopa 25-100 Tab] 1 each PO HS 07/11/13 Esomeprazole Magnesium [Nexium] 40 mg PO DAILY 07/11/13 Finasteride 5 mg PO DAILY 07/11/13 Pravastatin Sodium [Pravachol] 40 mg PO HS 07/11/13 Metoprolol Tartrate 25 mg PO BID 02/13/15 Objective - Vital Signs/Intake & Output Reviewed Vital Signs: Yes Vital Signs: Vital Signs x48h Temp Pulse Pulse Resp BP BP Pulse Ox 06/14/21 08:27 133/72 H 06/14/21 08:00 36.6 C 51 L 18 133/72 H 91 L 06/14/21 06:21 37.8 C 53 L 20 95 Intake & Output: Intake & Output 06/11/21 06/12/21 06/13/21 06/14/21 23:59 23:59 23:59 23:59 Intake Total 250 1440 Output Total 650 Balance 250 790 - Objective General Appearance: positive: No acute distress, Alert, Other (sitting up in chair, awake, alert, a little fuzzy on answering questions re: when symptoms started,) Respiratory: positive: No respiratory distress. negative: Breath sounds nml (initially had some inspiratory dry crackles ~1/2 up R>L, seemed to improve w/ inspirations during respiratory exam , Also his Sa02 improved during the exam w/ request for inspiration), Wheezes, Rhonchi Cardiovascular: positive: Regular rate & rhythm, No murmur Abdomen: positive: Nml bowel sounds, No distention. negative: Tenderness Skin: positive: Warm, Dry. negative: Diaphoresis Extremities: negative: Pedal edema Neurologic/Psychiatric: positive: Oriented x3, Mood/affect nml, Other (doesnt quite recall the course of his covid to the point of hospitalization) - Lab Results Fish Bones: 06/14/21 06:22 06/14/21 06:22 Other Labs: troponins flat Lab Results x24hrs 06/14/21 06/14/21 06/13/21 Range/Units 06:22 06:22 23:29 WBC 4.6 L (4.8-10.8) x10^3/uL RBC 4.03 L (4.70-6.10) 10^6/uL Hgb 12.2 L (14.0-18.0) g/dL Hct 35.3 L (42.0-52.0) % MCV 87.6 (80.0-94.0) fL MCH 30.3 (27.0-31.0) pg MCHC 34.6 (32.0-36.0) g/dL RDW 12.7 (12.0-15.0) % Plt Count 226 (130-450) 10^3/uL MPV 8.9 (7.4-11.4) fL Neut # (Auto) 4.1 (1.5-6.6) 10^3/uL Lymph # (Auto) 0.4 L (1.5-3.5) 10^3/uL Gallia # (Auto) 0.1 (0.0-1.0) 10^3/uL Eos # (Auto) 0.0 (0.0-0.7) 10^3/uL Baso # (Auto) 0.0 (0.0-0.1) 10^3/uL Absolute Nucleated RBC 0.00 x10^3/uL Nucleated RBC % 0.0 /100WBC Sodium 133 L (135-145) mmol/L Potassium 4.6 (3.5-5.0) mmol/L Chloride 99 L (101-111) mmol/L Carbon Dioxide 23 (21-32) mmol/L Anion Gap 11.0 (6-13) BUN 23 H (6-20) mg/dL Creatinine 1.2 (0.6-1.2) mg/dL Estimated GFR (MDRD) 57 L (>89) Glucose 144 H (70-100) mg/dL Calcium 8.4 L (8.5-10.3) mg/dL Total Bilirubin (0.2-1.0) mg/dL AST (10-42) IU/L ALT (10-60) IU/L Alkaline Phosphatase (42-121) IU/L Troponin I High Sens 20.1 H* (2.3-19.7) ng/L C-Reactive Protein 18.2 H (0-1.0) mg/dL B-Natriuretic Peptide (5-100) pg/mL Total Protein (6.7-8.2) g/dL Albumin (3.2-5.5) g/dL Globulin (2.1-4.2) g/dL Albumin/Globulin Ratio (1.0-2.2) Lipase (22-51) U/L Nasal Adenovirus (PCR) Nasal B. parapertussis DNA (PCR) Nasal Coronavir 229E PCR Nasal Coronavir HKU1 PCR Nasal Coronavir NL63 PCR Nasal Coronavir OC43 PCR Nasal Enterovir/Rhinovir PCR Nasal Influenza B PCR Nasal Influenza A PCR Nasal Parainfluen 1 PCR Nasal Parainfluen 2 PCR Nasal Parainfluen 3 PCR Nasal Parainfluen 4 PCR Nasal RSV (PCR) Nasal B.pertussis DNA PCR Nasal C.pneumoniae (PCR) [place] Human Metapneumo PCR Nasal M.pneumoniae (PCR) Nasal SARS-CoV-2 (PCR) 06/13/21 06/13/21 06/13/21 Range/Units 19:30 18:31 18:31 WBC (4.8-10.8) x10^3/uL RBC (4.70-6.10) 10^6/uL Hgb (14.0-18.0) g/dL Hct (42.0-52.0) % MCV (80.0-94.0) fL MCH (27.0-31.0) pg MCHC (32.0-36.0) g/dL RDW (12.0-15.0) % Plt Count (130-450) 10^3/uL MPV (7.4-11.4) fL Neut # (Auto) (1.5-6.6) 10^3/uL Lymph # (Auto) (1.5-3.5) 10^3/uL Gallia # (Auto) (0.0-1.0) 10^3/uL Eos # (Auto) (0.0-0.7) 10^3/uL Baso # (Auto) (0.0-0.1) 10^3/uL Absolute Nucleated RBC x10^3/uL Nucleated RBC % /100WBC Sodium (135-145) mmol/L Potassium (3.5-5.0) mmol/L Chloride (101-111) mmol/L Carbon Dioxide (21-32) mmol/L Anion Gap (6-13) BUN (6-20) mg/dL Creatinine (0.6-1.2) mg/dL Estimated GFR (MDRD) (>89) Glucose (70-100) mg/dL Calcium (8.5-10.3) mg/dL Total Bilirubin (0.2-1.0) mg/dL AST (10-42) IU/L ALT (10-60) IU/L Alkaline Phosphatase (42-121) IU/L Troponin I High Sens 22.9 H* (2.3-19.7) ng/L C-Reactive Protein (0-1.0) mg/dL B-Natriuretic Peptide 96 (5-100) pg/mL Total Protein (6.7-8.2) g/dL Albumin (3.2-5.5) g/dL Globulin (2.1-4.2) g/dL Albumin/Globulin Ratio (1.0-2.2) Lipase (22-51) U/L Nasal Adenovirus (PCR) NOT DETECTED Nasal B. parapertussis DNA (PCR) NOT DETECTED Nasal Coronavir 229E PCR NOT DETECTED Nasal Coronavir HKU1 PCR NOT DETECTED Nasal Coronavir NL63 PCR NOT DETECTED Nasal Coronavir OC43 PCR NOT DETECTED Nasal Enterovir/Rhinovir PCR NOT DETECTED Nasal Influenza B PCR NOT DETECTED Nasal Influenza A PCR NOT DETECTED Nasal Parainfluen 1 PCR NOT DETECTED Nasal Parainfluen 2 PCR NOT DETECTED Nasal Parainfluen 3 PCR NOT DETECTED Nasal Parainfluen 4 PCR NOT DETECTED Nasal RSV (PCR) NOT DETECTED Nasal B.pertussis DNA PCR NOT DETECTED Nasal C.pneumoniae (PCR) NOT DETECTED [place] Human Metapneumo PCR NOT DETECTED Nasal M.pneumoniae (PCR) NOT DETECTED Nasal SARS-CoV-2 (PCR) DETECTED A 06/13/21 06/13/21 Range/Units 18:31 18:31 WBC 6.1 (4.8-10.8) x10^3/uL RBC 4.50 L (4.70-6.10) 10^6/uL Hgb 13.8 L (14.0-18.0) g/dL Hct 39.6 L (42.0-52.0) % MCV 88.0 (80.0-94.0) fL MCH 30.7 (27.0-31.0) pg MCHC 34.8 (32.0-36.0) g/dL RDW 40.3 H (12.0-15.0) % Plt Count 238 (130-450) 10^3/uL MPV 9.0 (7.4-11.4) fL Neut # (Auto) 5.2 (1.5-6.6) 10^3/uL Lymph # (Auto) 0.6 L (1.5-3.5) 10^3/uL Gallia # (Auto) 0.3 (0.0-1.0) 10^3/uL Eos # (Auto) 0.0 (0.0-0.7) 10^3/uL Baso # (Auto) 0.0 (0.0-0.1) 10^3/uL Absolute Nucleated RBC 0.00 x10^3/uL Nucleated RBC % 0.0 /100WBC Sodium 132 L (135-145) mmol/L Potassium 4.1 (3.5-5.0) mmol/L Chloride 94 L (101-111) mmol/L Carbon Dioxide 26 (21-32) mmol/L Anion Gap 12.0 (6-13) BUN 28 H (6-20) mg/dL Creatinine 1.5 H (0.6-1.2) mg/dL Estimated GFR (MDRD) 44 L (>89) Glucose 122 H (70-100) mg/dL Calcium 8.6 (8.5-10.3) mg/dL Total Bilirubin 1.4 H (0.2-1.0) mg/dL AST 48 H (10-42) IU/L ALT 27 (10-60) IU/L Alkaline Phosphatase 48 (42-121) IU/L Troponin I High Sens (2.3-19.7) ng/L C-Reactive Protein (0-1.0) mg/dL B-Natriuretic Peptide (5-100) pg/mL Total Protein 6.9 (6.7-8.2) g/dL Albumin 3.3 (3.2-5.5) g/dL Globulin 3.6 (2.1-4.2) g/dL Albumin/Globulin Ratio 0.9 L (1.0-2.2) Lipase 67 H (22-51) U/L Nasal Adenovirus (PCR) Nasal B. parapertussis DNA (PCR) Nasal Coronavir 229E PCR Nasal Coronavir HKU1 PCR Nasal Coronavir NL63 PCR Nasal Coronavir OC43 PCR Nasal Enterovir/Rhinovir PCR Nasal Influenza B PCR Nasal Influenza A PCR Nasal Parainfluen 1 PCR Nasal Parainfluen 2 PCR Nasal Parainfluen 3 PCR Nasal Parainfluen 4 PCR Nasal RSV (PCR) Nasal B.pertussis DNA PCR Nasal C.pneumoniae (PCR) [place] Human Metapneumo PCR Nasal M.pneumoniae (PCR) Nasal SARS-CoV-2 (PCR) - Diagnostic Imaging Diagnostic Imaging Results: positive: Final report reviewed Diagnostic Imaging Comments: CXR ; diffuse bilateral airspace opacities are present, consistent with diffuse infectious process or CHF. no comparison images available Assessment/Plan - Problem List (1) COVID-19 virus infection Impression: Presenting as cough, shortness of breath, fatigue, confusion. Some hypoxia. Remdesivir 2/5 day Decadron 2/10 days Ceftriaxone/azithromycin were ordered on admit; (was afebrile, no leukocytosis) Xray c/w "diffuse" infectious process ; will stop Lovenox for DVT prophylaxis orderd proning (2) Hypoxia related to covid-19 infection Stable on NC on 5L (but of note 5L started for 91 % this morning; now 97%. As in exam note, does improve w/ deep inspiration IS ordered Per patient d/w Dr Jack he is ok w/ escalating care to ICU/intubation / transfer etc if needed (3) Acute kidney injury superimposed on chronic kidney disease 01/11.5 on presentation likely a bit prerenal w/ acute illness improved w/ IVF 27/10.2 now Encourage PO liquids Recheck BMP in am (4) Cognitive deficits Conclusion/Plan: Stable, patient is indeed nondetailed w/ history; DOES know he is covid positive w/o me telling him no acute intervention needed re: cognition; outpt cog eval Daughter concerned re: cognitive defects w/ some decline over last year/ more severe last couple weeks Also concern re: new giving Invermectin (though may have been well intentioned given media reports Daughter filing APS eval request; they may call in room to speak with himDaughter had spoken to the emergency room provider to say the data been having some cognitive decline over the last year but more severe over the last couple of weeks. Daughter has been very concerned about his care with his new . She states that she will be filing an Adult Protective Services request for evaluation. (5) Elevated troponin Troponins flat No cardiac event suspected (6) Obstructive sleep apnea on CPAP Conclusion/Plan: Has CPAP at home, but not along (admitted to DR Jack he doesnt like the mask , and was unlikely he would wear for sleep (7) Hypertension Conclusion/Plan: on metoprolol at home, written for 25 bid here, held w/ HR under 60. per med rec; on 12.5 bid at home ordered 12.5 bid w/ hold parameters (8) Restless leg syndrome resumed his carbidopa/levodopa (requip ) at his request (9) BPH (benign prostatic hyperplasia) Conclusion/Plan: resume finasterid
[2021-06-14] MEDS: CHOLECALCIFEROL 25 MCG TABLET PO SCH (14:06)
--- NOTE | 2021-06-14 15:32 | PHARMACY PROGRESS NOTE ---
- Best Possible Medication History Admit Date and Time: 06/13/211947 Processed by: Pharmacy Medication History completed: Yes Patient Interview: Pt unable to participate Secondary Source(s): Physician records, Pharmacy records, Insurance records As the person ultimately responsible for medication therapy, providers are able to order a medication from an existing home medication list in [facility] via the "Reconcile Routine" prior to Confirmation of that medication by support services rep. Such practice is discouraged except when the physician, in their clinical judgment, deems that a medical need exists for a medication without regard to previous use.
[2021-06-14] MEDS: CARBIDOPA/LEVODOPA 25 MG/100 MG TABLET PO SCH (20:12)
[2021-06-14] MEDS: METOPROLOL TARTRATE 25 MG TABLET PO SCH (20:13)
[2021-06-14] MEDS ORDERED: AZITHROMYCIN INJ 500 MG in SODIUM CHLORIDE 0.9% 250 ML IV SCH (22:00)
[2021-06-15 06:17] LABS: HCT - HEMATOCRIT 37.3 % (42.0-52.0); HGB - HEMOGLOBIN 13.1 g/dL (14.0-18.0); LYMPHOCYTES # (AUTO) 0.4 10^3/uL (1.5-3.5); LYMPHOCYTES % (AUTO) 7.3 %; MEAN CORPUSCULAR HEMOGLOBIN 30.5 pg (27.0-31.0); MEAN CORPUSCULAR HGB CONC 35.1 g/dL (32.0-36.0); MEAN CORPUSCULAR VOLUME 86.7 fL (80.0-94.0); MEAN PLATELET VOLUME 8.7 fL (7.4-11.4); MONOCYTES # (AUTO) 0.3 10^3/uL (0.0-1.0); MONOCYTES % (AUTO) 4.5 %; NEUTROPHILS # (AUTO) 5.2 10^3/uL (1.5-6.6); NEUTROPHILS % (AUTO) 87.5 %; PLT - PLATELET COUNT 266 10^3/uL (130-450); RED CELL DISTRIBUTION WIDTH 12.5 % (12.0-15.0)
[2021-06-15 06:30] LABS: CALCIUM 8.6 mg/dL (8.5-10.3); CREATININE 0.9 mg/dL (0.6-1.2); CRP - C-REACTIVE PROTEIN 11.8 mg/dL (0-1.0); POTASSIUM 4.2 mmol/L (3.5-5.0)
[2021-06-15] MEDS: ENOXAPARIN 40 MG/0.4 ML SYRINGE SUBQ SCH (08:48)
[2021-06-15] MEDS: DEXAMETHASONE 4 MG/ML VIAL IVP SCH (08:48)
[2021-06-15] MEDS: FINASTERIDE 5 MG TABLET PO SCH (08:48)
[2021-06-15] MEDS: REMDESIVIR 100MG VIAL 100 MG in SODIUM CHLORIDE 0.9% 100ML 100 ML IV SCH (08:49)
[2021-06-15] MEDS: SODIUM CHLORIDE FLUSH 0.9% 10 ML SYRINGE IVP SCH ×3 (08:49→16:25)
[2021-06-15] MEDS: METOPROLOL TARTRATE 25 MG TABLET PO SCH ×2 (08:49→21:34)
[2021-06-15] MEDS: CHOLECALCIFEROL 25 MCG TABLET PO SCH (08:55)
--- NOTE | 2021-06-15 09:25 | PROVIDER PROGRESS NOTE ---
Assessment/Plan - Problem List (1) COVID-19 virus infection Assessment/Plan: Presented with confusion, cough, and shortness of breath. Denies shortness of breath today, on oxymizer 4L/min with bedside sats mid 90s. Plan: Continue Remdesivir day 3 of 5 and Decadron day 3 of 10. Lovenox for DVT prophylaxis Continue to encourage proning (2) Hypoxia Assessment/Plan: Oxymizer is down to 4L/min with bedside sats mid 90s. Breath sounds are clear through out. IS is at bedside with reported 1500ml volume. Plan: Continue to monitor oxygenation and titrate O2 as needed. Encourage continued use of IS to prevent atalectasis. (3) Acute kidney injury superimposed on chronic kidney disease Assessment/Plan: Admission BUN/ Creatine elevated 28/1.5 on admission. Improved today 25/0.9.Previous labs from 12/2020 26/1.4. IVF preset to DC 06/14 at 2000. Plan: Encourage PO fluids. Monitor BMP daily. Resume IV fluids. (4) Cognitive deficits Assessment/Plan: Pt. is alert and oriented to self, location, and situation. Lives at home with . Pervious provider spoke with daughter who is "concerned re: cognitive defects w/ some decline over last year/ more severe last couple weeks and was giving pt. Invermectin". Daughter also shared with ED provider that pt has had cognitive decline over past year with an more severe decline in last few weeks. APS report was submitted. Plan: No intervention needed at this time. Continue to montior and provide support as needed to patient and family. (5) Elevated troponin Assessment/Plan: Troponin on admission elevated slightly at 22.9 repeat was 20.1. Liley due to acute on chronic kidney disease. Plan: If patient begins to experience chest pain or change in cardiac condition, consider reordering serial troponins. (6) Obstructive sleep apnea on CPAP Assessment/Plan: Has hx of obstructive sleep apnea with a home CPAP. Plan: Order home CPAP for hospital use. (7) Hypertension Qualifiers: Hypertension type: primary hypertension Qualified Code(s): I10 - Essential (primary) hypertension Assessment/Plan: History of hypertension. Takes Metoprolol 2.5mg BID at home. Mediciation resumed inpt, has been held by RNs for HR less than 60. Sbp 110-130s. Plan: Continue with home medication Metropolol for HTN control and hold for HR less than 60. (8) Restless leg syndrome Assessment/Plan: Has hx of restless leg syndrome. Plan: Continue home medication carbidopa/levodopa (9) BPH (benign prostatic hyperplasia) Qualifiers: Lower urinary tract symptom presence: symptoms present Assessment/Plan: History of BPH Plan: Continue Finasterid - Current Meds Current Meds: Current Medications Generic Name Dose Route Start Last Admin Trade Name Freq PRN Reason Stop Dose Admin Carbidopa/Levodopa 1 tab 06/14/21 21:00 06/14/21 20:12 Carbidopa/Levodopa 25 Mg/100 Mg Tablet PO 1 tab HS JORDIN Administration Cholecalciferol 50 mcg 06/14/21 11:00 06/15/21 08:55 Cholecalciferol 25 Mcg Tablet PO 50 mcg DAILY JORDIN Administration Dexamethasone 6 mg 06/14/21 07:45 06/15/21 08:48 Dexamethasone 4 Mg/Ml Vial IVP 6 mg DAILY JORDIN Administration Enoxaparin Sodium 40 mg 06/14/21 09:00 06/15/21 08:48 Enoxaparin 40 Mg/0.4 Ml Syringe SUBQ 40 mg DAILY JORDIN Administration Finasteride 5 mg 06/14/21 09:00 06/15/21 08:48 Finasteride 5 Mg Tablet PO 5 mg DAILY JORDIN Administration Remdesivir 100 mg/ Sodium 100 mls @ 200 mls/hr 06/15/21 09:00 06/15/21 08:49 Chloride IV 06/18/21 09:29 200 mls/hr DAILY JORDIN Administration Metoprolol Tartrate 12.5 mg 06/14/21 21:00 06/15/21 08:49 Metoprolol Tartrate 25 Mg Tablet PO Not Given BID JORDIN Sodium Chloride 10 ml 06/14/21 01:00 06/15/21 08:49 Sodium Chloride Flush 0.9% 10 Ml Syringe IVP 10 ml 0100,0900,1700 JORDIN Administration - Lab Result Fish Bone Diagrams: 06/15/21 06:04 06/15/21 06:04 - Additional Planning Condition/Complexity: Guarded Subjective - Subjective Patient Reports: Feeling Better, Resting Comfortably, No Complaints (Denies shortness of breath. Reports using IS and reaching 1500ml. Continues to have have intermittent productive cough.) Nursing Reports: No Complaints Objective Vital Signs: Vital Signs - 24 hr 06/14/21 06/14/21 06/14/21 16:00 20:13 23:36 Temperature 36.6 C 36.6 C Heart Rate [ 51 L 51 L Radial] Respiratory 18 18 Rate Blood Pressure 144/70 H Blood Pressure [Left Brachial artery] Blood Pressure 144/70 H 136/79 H [Right Brachial artery] O2 Saturation 97 93 06/15/21 06/15/21 06:07 08:31 Temperature 36.4 C L Heart Rate [ 49 L 52 L Radial] Respiratory 17 18 Rate Blood Pressure Blood Pressure 116/63 [Left Brachial artery] Blood Pressure [Right Brachial artery] O2 Saturation 94 92 Oxygen O2 Source Oxymizer Oxygen Flow Rate 4 I&O (Last 24 Hrs): Intake and Output Totals x24h 06/13/21 06/14/21 06/15/21 23:59 23:59 23:59 Intake Total 250 3570 Output Total 950 450 Balance 250 2620 -450 General: Alert, Cooperative, No acute distress HEENT: PERRLA, Mucous membr. moist/pink Neck: Supple, No JVD Neuro: Alert Cardiovascular: Regular rate, No murmurs, Other (Bradycardia) Respiratory: Chest non-tender, No respiratory distress, Breath sounds nml Abdomen: Normal bowel sounds, Soft Extremities: No clubbing, No cyanosis, No edema, No tenderness/swelling - Results Results: Laboratory Results WBC 6.0 x10^3/uL (4.8-10.8) 06/15/21 06:04 RBC 4.30 10^6/uL (4.70-6.10) L 06/15/21 06:04 Hgb 13.1 g/dL (14.0-18.0) L 06/15/21 06:04 Hct 37.3 % (42.0-52.0) L 06/15/21 06:04 MCV 86.7 fL (80.0-94.0) 06/15/21 06:04 MCH 30.5 pg (27.0-31.0) 06/15/21 06:04 MCHC 35.1 g/dL (32.0-36.0) 06/15/21 06:04 RDW 12.5 % (12.0-15.0) 06/15/21 06:04 Plt Count 266 10^3/uL (130-450) 06/15/21 06:04 MPV 8.7 fL (7.4-11.4) 06/15/21 06:04 Neut # (Auto) 5.2 10^3/uL (1.5-6.6) 06/15/21 06:04 Lymph # (Auto) 0.4 10^3/uL (1.5-3.5) L 06/15/21 06:04 Jones # (Auto) 0.3 10^3/uL (0.0-1.0) 06/15/21 06:04 Eos # (Auto) 0.0 10^3/uL (0.0-0.7) 06/15/21 06:04 Baso # (Auto) 0.0 10^3/uL (0.0-0.1) 06/15/21 06:04 Absolute Nucleated RBC 0.00 x10^3/uL 06/15/21 06:04 Nucleated RBC % 0.0 /100WBC 06/15/21 06:04 Sodium 136 mmol/L (135-145) 06/15/21 06:04 Potassium 4.2 mmol/L (3.5-5.0) 06/15/21 06:04 Chloride 101 mmol/L (101-111) 06/15/21 06:04 Carbon Dioxide 25 mmol/L (21-32) 06/15/21 06:04 Anion Gap 10.0 (6-13) 06/15/21 06:04 BUN 25 mg/dL (6-20) H 06/15/21 06:04 Creatinine 0.9 mg/dL (0.6-1.2) 06/15/21 06:04 Estimated GFR (MDRD) 80 (>89) L 06/15/21 06:04 Glucose 164 mg/dL (70-100) H 06/15/21 06:04 Calcium 8.6 mg/dL (8.5-10.3) 06/15/21 06:04 Total Bilirubin 1.4 mg/dL (0.2-1.0) H 06/13/21 18:31 AST 48 IU/L (10-42) H 06/13/21 18:31 ALT 27 IU/L (10-60) 06/13/21 18:31 Alkaline Phosphatase 48 IU/L (42-121) 06/13/21 18:31 Troponin I High Sens 20.1 ng/L (2.3-19.7) H* 06/13/21 23:29 C-Reactive Protein 11.8 mg/dL (0-1.0) H 06/15/21 06:04 B-Natriuretic Peptide 96 pg/mL (5-100) 06/13/21 18:31 Total Protein 6.9 g/dL (6.7-8.2) 06/13/21 18:31 Albumin 3.3 g/dL (3.2-5.5) 06/13/21 18:31 Globulin 3.6 g/dL (2.1-4.2) 06/13/21 18:31 Albumin/Globulin Ratio 0.9 (1.0-2.2) L 06/13/21 18:31 Lipase 67 U/L (22-51) H 06/13/21 18:31 Nasal Adenovirus (PCR) NOT DETECTED 06/13/21 19:30 Nasal B. parapertussis DNA (PCR) NOT DETECTED 06/13/21 19:30 Nasal Coronavir 229E PCR NOT DETECTED 06/13/21 19:30 Nasal Coronavir HKU1 PCR NOT DETECTED 06/13/21 19:30 Nasal Coronavir NL63 PCR NOT DETECTED 06/13/21 19:30 Nasal Coronavir OC43 PCR NOT DETECTED 06/13/21 19:30 Nasal Enterovir/Rhinovir PCR NOT DETECTED 06/13/21 19:30 Nasal Influenza B PCR NOT DETECTED 06/13/21 19:30 Nasal Influenza A PCR NOT DETECTED 06/13/21 19:30 Nasal Parainfluen 1 PCR NOT DETECTED 06/13/21 19:30 Nasal Parainfluen 2 PCR NOT DETECTED 06/13/21 19:30 Nasal Parainfluen 3 PCR NOT DETECTED 06/13/21 19:30 Nasal Parainfluen 4 PCR NOT DETECTED 06/13/21 19:30 Nasal RSV (PCR) NOT DETECTED 06/13/21 19:30 Nasal B.pertussis DNA PCR NOT DETECTED 06/13/21 19:30 Nasal C.pneumoniae (PCR) NOT DETECTED 06/13/21 19:30 [place]ad Human Metapneumo PCR NOT DETECTED 06/13/21 19:30 Nasal M.pneumoniae (PCR) NOT DETECTED 06/13/21 19:30 Nasal SARS-CoV-2 (PCR) DETECTED A 06/13/21 19:30 ABX Reporting Has patient been on IV antibiotics over the past 48 hours?: Yes
[2021-06-15] MEDS ORDERED: NS W/20 MEQ KCL 1,000 ML IV SCH (16:00)
[2021-06-15] MEDS: CARBIDOPA/LEVODOPA 25 MG/100 MG TABLET PO SCH (21:33)
[2021-06-16 07:52] LABS: BASOPHILS % (AUTO) 0.1 %; HCT - HEMATOCRIT 41.2 % (42.0-52.0); HGB - HEMOGLOBIN 14.1 g/dL (14.0-18.0); LYMPHOCYTES # (AUTO) 0.6 10^3/uL (1.5-3.5); LYMPHOCYTES % (AUTO) 5.7 %; MEAN CORPUSCULAR HGB CONC 34.2 g/dL (32.0-36.0); MEAN CORPUSCULAR VOLUME 87.7 fL (80.0-94.0); MEAN PLATELET VOLUME 9.1 fL (7.4-11.4); MONOCYTES # (AUTO) 0.4 10^3/uL (0.0-1.0); MONOCYTES % (AUTO) 4.5 %; NEUTROPHILS # (AUTO) 8.6 10^3/uL (1.5-6.6); NEUTROPHILS % (AUTO) 89.1 %; PLT - PLATELET COUNT 315 10^3/uL (130-450); RED CELL DISTRIBUTION WIDTH 12.5 % (12.0-15.0); WHITE BLOOD COUNT 9.7 x10^3/uL (4.8-10.8)
[2021-06-16 08:13] LABS: CALCIUM 8.8 mg/dL (8.5-10.3); CRP - C-REACTIVE PROTEIN 5.9 mg/dL (0-1.0); POTASSIUM 4.4 mmol/L (3.5-5.0)
[2021-06-16] MEDS: REMDESIVIR 100MG VIAL 100 MG in SODIUM CHLORIDE 0.9% 100ML 100 ML IV SCH (09:22)
[2021-06-16] MEDS: CHOLECALCIFEROL 25 MCG TABLET PO SCH (10:26)
[2021-06-16] MEDS: FINASTERIDE 5 MG TABLET PO SCH (10:27)
[2021-06-16] MEDS: METOPROLOL TARTRATE 25 MG TABLET PO SCH (10:27)
[2021-06-16] MEDS: DEXAMETHASONE 4 MG/ML VIAL IVP SCH (10:27)
[2021-06-16] MEDS: ENOXAPARIN 40 MG/0.4 ML SYRINGE SUBQ SCH (10:27)
[2021-06-16] MEDS ORDERED: FLUTICASONE NASAL SPRAY NAS PRN (11:00)
--- NOTE | 2021-06-16 11:06 | PROVIDER PROGRESS NOTE ---
Assessment/Plan - Problem List (1) Acute respiratory failure with hypoxia Assessment/Plan: Continue with supplemental oxygen and treating the underlying problem which is the Covid pneumonia (2) COVID-19 virus infection Assessment/Plan: New with IV remdesivir, IV Decadron, Mucinex, incentive spirometry, suppl O2 and proning to sleep (3) Hypertension Qualifiers: Hypertension type: primary hypertension Qualified Code(s): I10 - Essential (primary) hypertension Assessment/Plan: It appears that this patient's home blood pressure med was metoprolol tartrate twice daily. Here he is bradycatrdicat 49 and 55. We will stop his beta-leonor and start Amlodipine for blood pressure control. (4) Acute kidney injury superimposed on chronic kidney disease Assessment/Plan: He still has elevated BUN/creatinine ratio. He has received 2 days of IV fluids which have now been stopped. Avoid nephrotoxins. Follow BMP daily (5) Cognitive deficits Assessment/Plan: Etiology unclear, whether this is Alzheimer's or after a stroke or related to Parkinson's since he is on levodopa carbidopa. Last evening he had "sundowning". He tried to get out of bed on his own and with the bed rail down, he leaned on his bedside table which is on wheels and he fell out of bed, landing on his buttocks. Will order out of bed to chair only with assistance so that an alert occurs if he tries to get out of bed alone. He may need PT for evaluating his gait and whether it is safe for him to return home to live with his . (6) Fall during current hospitalization Qualifiers: Encounter type: subsequent encounter Qualified Code(s): W19.XXXD - Unspecified fall, subsequent encounter; Y92.239 - Unspecified place in hospital as the place of occurrence of the external cause Assessment/Plan: Last evening he had "sundowning". He tried to get out of bed on his own and with the bed rail down, he leaned on his bedside table which is on wheels and he fell out of bed, landing on his buttocks. He was seen by the Applications Development Analyst, no CT head was needed. Will add order for out of bed with assistance. He may need a PT evaluation while here (7) BPH (benign prostatic hyperplasia) Qualifiers: Lower urinary tract symptom presence: symptoms present Assessment/Plan: Proscar has been ordered to start here, which will also help with the blood pressure. (8) Obstructive sleep apnea on CPAP Assessment/Plan: His home CPAP is ordered to be used here (9) Restless leg syndrome Assessment/Plan: His usual meds are ordered to be used here - Current Meds Current Meds: Current Medications Generic Name Dose Route Start Last Admin Trade Name [place] PRN Reason Stop Dose Admin Carbidopa/Levodopa 1 tab 06/14/21 21:00 06/15/21 21:33 Carbidopa/Levodopa 25 Mg/100 Mg Tablet PO 1 tab HS JORDIN Administration Cholecalciferol 50 mcg 06/14/21 11:00 06/16/21 10:26 Cholecalciferol 25 Mcg Tablet PO 50 mcg DAILY JORDIN Administration Dexamethasone 6 mg 06/14/21 07:45 06/16/21 10:27 Dexamethasone 4 Mg/Ml Vial IVP 6 mg DAILY JORDIN Administration Enoxaparin Sodium 40 mg 06/14/21 09:00 06/16/21 10:27 Enoxaparin 40 Mg/0.4 Ml Syringe SUBQ 40 mg DAILY JORDIN Administration Finasteride 5 mg 06/14/21 09:00 06/16/21 10:27 Finasteride 5 Mg Tablet PO 5 mg DAILY JORDIN Administration Remdesivir 100 mg/ Sodium 100 mls @ 200 mls/hr 06/15/21 09:00 06/16/21 10:00 Chloride IV 06/18/21 09:29 Infused DAILY JORDIN Infusion Sodium Chloride 10 ml 06/14/21 01:00 06/15/21 16:25 Sodium Chloride Flush 0.9% 10 Ml Syringe IVP 10 ml 0100,0900,1700 JORDIN Administration - Lab Result Fish Bone Diagrams: 06/16/21 07:23 06/16/21 07:23 - Additional Planning My Orders: My Active Orders 06/15/21 11:38 Home CPAP/BiPAP [RC] .ONCE 06/16/21 11:00 Fluticasone [Flonase] 1 sprays LEXI BID PRN 06/16/21 12:00 amLODIPine [Norvasc] 2.5 mg PO DAILY 06/17/21 09:00 Cholecalciferol (Vitamin D3) [Vitamin D3] 100 mcg PO DAILY Subjective - Subjective Patient Reports: Feeling Better (He denies being short of breath is mostly at rest in his room) Nursing Reports: Other (His O2 supplement needs are between 2 and 4 L per NC) Objective Vital Signs: Vital Signs - 24 hr 06/15/21 06/15/21 06/16/21 15:38 21:34 00:00 Temperature 36.6 C 36.4 C L Heart Rate [ Brachial] Heart Rate [ 66 58 L Radial] Respiratory 18 17 Rate Blood Pressure 127/68 Blood Pressure 140/70 H [Left Brachial artery] Blood Pressure 127/68 [Right Brachial artery] O2 Saturation 92 06/16/21 06/16/21 06/16/21 01:06 01:09 07:48 Temperature 36.6 C Heart Rate [ 50 L Brachial] Heart Rate [ Radial] Respiratory 16 Rate Blood Pressure Blood Pressure 150/88 H [Left Brachial artery] Blood Pressure [Right Brachial artery] O2 Saturation 91 L 92 96 06/16/21 10:27 Temperature Heart Rate [ Brachial] Heart Rate [ Radial] Respiratory Rate Blood Pressure 131/66 H Blood Pressure [Left Brachial artery] Blood Pressure [Right Brachial artery] O2 Saturation Oxygen O2 Source Oxymizer Oxygen Flow Rate 4 I&O (Last 24 Hrs): Intake and Output Totals x24h 06/14/21 06/15/21 06/16/21 23:59 23:59 23:59 Intake Total 3570 1080 1220 Output Total 950 1050 325 Balance 2620 30 895 General: Alert, No acute distress HEENT: Mucous membr. moist/pink Neck: Supple Neuro: Alert, Non Focal (Poor memory, he does Not remember falling last night) Cardiovascular: Regular rate Respiratory: Other (Not auscultated) Abdomen: Soft Extremities: No edema - Results Results: Laboratory Results WBC 9.7 x10^3/uL (4.8-10.8) 06/16/21 07:23 RBC 4.70 10^6/uL (4.70-6.10) 06/16/21 07:23 Hgb 14.1 g/dL (14.0-18.0) 06/16/21 07:23 Hct 41.2 % (42.0-52.0) L 06/16/21 07:23 MCV 87.7 fL (80.0-94.0) 06/16/21 07:23 MCH 30.0 pg (27.0-31.0) 06/16/21 07:23 MCHC 34.2 g/dL (32.0-36.0) 06/16/21 07:23 RDW 12.5 % (12.0-15.0) 06/16/21 07:23 Plt Count 315 10^3/uL (130-450) 06/16/21 07:23 MPV 9.1 fL (7.4-11.4) 06/16/21 07:23 Neut # (Auto) 8.6 10^3/uL (1.5-6.6) H 06/16/21 07:23 Lymph # (Auto) 0.6 10^3/uL (1.5-3.5) L 06/16/21 07:23 [place] # (Auto) 0.4 10^3/uL (0.0-1.0) 06/16/21 07:23 Eos # (Auto) 0.0 10^3/uL (0.0-0.7) 06/16/21 07:23 Baso # (Auto) 0.0 10^3/uL (0.0-0.1) 06/16/21 07:23 Absolute Nucleated RBC 0.00 x10^3/uL 06/16/21 07:23 Nucleated RBC % 0.0 /100WBC 06/16/21 07:23 Sodium 137 mmol/L (135-145) 06/16/21 07:23 Potassium 4.4 mmol/L (3.5-5.0) 06/16/21 07:23 Chloride 102 mmol/L (101-111) 06/16/21 07:23 Carbon Dioxide 24 mmol/L (21-32) 06/16/21 07:23 Anion Gap 11.0 (6-13) 06/16/21 07:23 BUN 25 mg/dL (6-20) H 06/16/21 07:23 Creatinine 1.0 mg/dL (0.6-1.2) 06/16/21 07:23 Estimated GFR (MDRD) 71 (>89) L 06/16/21 07:23 Glucose 147 mg/dL (70-100) H 06/16/21 07:23 Calcium 8.8 mg/dL (8.5-10.3) 06/16/21 07:23 Total Bilirubin 1.4 mg/dL (0.2-1.0) H 06/13/21 18:31 AST 48 IU/L (10-42) H 06/13/21 18:31 ALT 27 IU/L (10-60) 06/13/21 18:31 Alkaline Phosphatase 48 IU/L (42-121) 06/13/21 18:31 Troponin I High Sens 20.1 ng/L (2.3-19.7) H* 06/13/21 23:29 C-Reactive Protein 5.9 mg/dL (0-1.0) H 06/16/21 07:23 B-Natriuretic Peptide 96 pg/mL (5-100) 06/13/21 18:31 Total Protein 6.9 g/dL (6.7-8.2) 06/13/21 18:31 Albumin 3.3 g/dL (3.2-5.5) 06/13/21 18:31 Globulin 3.6 g/dL (2.1-4.2) 06/13/21 18:31 Albumin/Globulin Ratio 0.9 (1.0-2.2) L 06/13/21 18:31 Lipase 67 U/L (22-51) H 06/13/21 18:31 Nasal Adenovirus (PCR) NOT DETECTED 06/13/21 19:30 Nasal B. parapertussis DNA (PCR) NOT DETECTED 06/13/21 19:30 Nasal Coronavir 229E PCR NOT DETECTED 06/13/21 19:30 Nasal Coronavir HKU1 PCR NOT DETECTED 06/13/21 19:30 Nasal Coronavir NL63 PCR NOT DETECTED 06/13/21 19:30 Nasal Coronavir OC43 PCR NOT DETECTED 06/13/21 19:30 Nasal Enterovir/Rhinovir PCR NOT DETECTED 06/13/21 19:30 Nasal Influenza B PCR NOT DETECTED 06/13/21 19:30 Nasal Influenza A PCR NOT DETECTED 06/13/21 19:30 Nasal Parainfluen 1 PCR NOT DETECTED 06/13/21 19:30 Nasal Parainfluen 2 PCR NOT DETECTED 06/13/21 19:30 Nasal Parainfluen 3 PCR NOT DETECTED 06/13/21 19:30 Nasal Parainfluen 4 PCR NOT DETECTED 06/13/21 19:30 Nasal RSV (PCR) NOT DETECTED 06/13/21 19:30 Nasal B.pertussis DNA PCR NOT DETECTED 06/13/21 19:30 Nasal C.pneumoniae (PCR) NOT DETECTED 06/13/21 19:30 Lexi Human Metapneumo PCR NOT DETECTED 06/13/21 19:30 Nasal M.pneumoniae (PCR) NOT DETECTED 06/13/21 19:30 Nasal SARS-CoV-2 (PCR) DETECTED A 06/13/21 19:30
[2021-06-16] MEDS: amLODIPine 5 MG TABLET PO SCH (12:19)
[2021-06-16] MEDS: SODIUM CHLORIDE FLUSH 0.9% 10 ML SYRINGE IVP SCH ×3 (13:31→17:33)
[2021-06-16] MEDS: CARBIDOPA/LEVODOPA 25 MG/100 MG TABLET PO SCH (21:10)
[2021-06-17] MEDS: SODIUM CHLORIDE FLUSH 0.9% 10 ML SYRINGE IVP SCH ×3 (01:45→21:44)
[2021-06-17 05:50] LABS: BASOPHILS % (AUTO) 0.1 %; HGB - HEMOGLOBIN 12.5 g/dL (14.0-18.0); LYMPHOCYTES # (AUTO) 0.5 10^3/uL (1.5-3.5); LYMPHOCYTES % (AUTO) 6.8 %; MEAN CORPUSCULAR HGB CONC 34.7 g/dL (32.0-36.0); MEAN CORPUSCULAR VOLUME 86.5 fL (80.0-94.0); MEAN PLATELET VOLUME 8.7 fL (7.4-11.4); MONOCYTES # (AUTO) 0.3 10^3/uL (0.0-1.0); MONOCYTES % (AUTO) 3.6 %; NEUTROPHILS % (AUTO) 88.9 %; PLT - PLATELET COUNT 304 10^3/uL (130-450); RED BLOOD COUNT 4.16 10^6/uL (4.70-6.10); RED CELL DISTRIBUTION WIDTH 12.5 % (12.0-15.0); WHITE BLOOD COUNT 7.8 x10^3/uL (4.8-10.8)
[2021-06-17 06:09] LABS: CALCIUM 8.7 mg/dL (8.5-10.3); CREATININE 0.9 mg/dL (0.6-1.2); CRP - C-REACTIVE PROTEIN 3.5 mg/dL (0-1.0); POTASSIUM 4.4 mmol/L (3.5-5.0)
[2021-06-17] MEDS: FINASTERIDE 5 MG TABLET PO SCH (09:29)
[2021-06-17] MEDS: amLODIPine 5 MG TABLET PO SCH (09:30)
[2021-06-17] MEDS: DEXAMETHASONE 4 MG/ML VIAL IVP SCH (09:31)
[2021-06-17] MEDS: REMDESIVIR 100MG VIAL 100 MG in SODIUM CHLORIDE 0.9% 100ML 100 ML IV SCH (09:33)
[2021-06-17] MEDS: ENOXAPARIN 40 MG/0.4 ML SYRINGE SUBQ SCH (09:34)
[2021-06-17] MEDS: CHOLECALCIFEROL 25 MCG TABLET PO SCH (13:05)
[2021-06-17] MEDS: CARBIDOPA/LEVODOPA 25 MG/100 MG TABLET PO SCH (21:43)
--- NOTE | 2021-06-17 23:04 | PROVIDER PROGRESS NOTE ---
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 Patient has been on supplemental oxygen, received remdesivir and steroid. His respiratory status had been stable during the past few days; he did not have increasing oxygen requirement, he tolerated being on supplemental oxygen between 4 to 5 L nasal cannula. His hospital course had been complicated by delirium/sundowning. He suffered a low impact mechanical fall a few nights ago which resulted in no injury. He remains pleasantly confused. Regarding hemodynamics he has been hypertensive however with bradycardia at the same time therefore daytime hospitalist yesterday switched beta-leonor to amlodipine. Notably, orthostatic check was inconsistent, blood pressure fluctuated between 115 and 160 systolic. Today when I visited the patient he appeared comfortable, offered no complaint, was pleasantly confused without agitation. Active issues/Diagnoses: Hypoxic respiratory failure secondary to Covid pneumonia Acute kidney injury/resolved Hypertension currently on amlodipine still with bradycardia/Reviewing the chart bradycardia is unchanged/might be secondary to autonomic dysfunction in the setting of Parkinson's disease Obstructive sleep apnea on CPAP Benign prostatic hypertrophy Restless leg syndrome Cognitive deficit/Parkinson's disease/Alzheimer's dementia/post stroke syndrome/fall risk with in-hospital low impact fall without injury Plan/orders: Continue current care for Covid pneumonia including steroid, remdesivir, bronchodilator and supplemental oxygen. If does not improve consider repeating chest x-ray and depending on the clinical course adding antibiotic to cover for secondary bacterial infection. Along that line r/o DVT/PE considering higher thromboembolic risk in the setting of Covid, if does not improve. Add proton pump inhibitor for GI prophylaxis in the setting of steroid use. Lab work per clinical course and per remdesivir protocol. Regarding blood pressure control and and heart rate control, bradycardia seems chronic and stable/asymptomatic. With Parkinson's disease autonomic dysfunction is probable. For now we will continue amlodipine and monitor the clinical course. Continue CPAP for PAO. Fall risk. DVT prophylaxis. Regading, delirium/sundowning/cognitive impairment we will try to use nonpharmacologic measures. PT/OT to avoid deconditioning. Case management for discharge planning. Vital Signs - 24 hr 06/17/21 06/17/21 06/17/21 08:00 15:10 16:00 Temperature 36.5 C 36.6 C Heart Rate [ 57 L 55 L Brachial] Heart Rate [ 69 Sitting] Heart Rate [ 57 L Supine] Respiratory 22 20 Rate Blood Pressure 127/73 115/68 [Right Brachial artery] Blood Pressure 164/98 H [Sitting] Blood Pressure 133/83 H [Supine] O2 Saturation 91 L 95 Physical exam: General: Patient is a frail elderly male, tremulous, without distress CVS: S1, S2, bradycardia Respiratory: Comfortable on supplemental oxygen 4 L nasal cannula, no increased work of breathing, no wheezes no crackles Neuro: Patient is seen in the evening, he appears pleasantly confused, has intentional tremors, no new focal deficit Psych: Without agitation Musculoskeletal: No calf tenderness Reviewed admission work-up, imaging, chart notes, medications, vital signs, nursing notes. Active Medications Generic Name Dose Route Start Last Admin Trade Name Freq PRN Reason Stop Dose Admin Acetaminophen 650 mg 06/13/21 19:48 Acetaminophen 325 Mg Tablet PO Q4HR PRN Pain 1 to 4 Amlodipine Besylate 2.5 mg 06/16/21 12:00 06/17/21 09:30 Amlodipine 5 Mg Tablet PO 2.5 mg DAILY JORDIN Administration Carbidopa/Levodopa 1 tab 06/14/21 21:00 06/17/21 21:43 Carbidopa/Levodopa 25 Mg/100 Mg Tablet PO 1 tab HS JORDIN Administration Cholecalciferol 100 mcg 06/17/21 09:00 06/17/21 13:05 Cholecalciferol 25 Mcg Tablet PO 100 mcg DAILY JORDIN Administration Dexamethasone 6 mg 06/14/21 07:45 06/17/21 09:31 Dexamethasone 4 Mg/Ml Vial IVP 6 mg DAILY JORDIN Administration Enoxaparin Sodium 40 mg 06/14/21 09:00 06/17/21 09:34 Enoxaparin 40 Mg/0.4 Ml Syringe SUBQ 40 mg DAILY JORDIN Administration Finasteride 5 mg 06/14/21 09:00 06/17/21 09:29 Finasteride 5 Mg Tablet PO 5 mg DAILY JORDIN Administration Fluticasone Propionate 1 sprays 06/16/21 11:00 Fluticasone Nasal [place] LEXI BID PRN Nasal Congestion Remdesivir 100 mg/ Sodium 100 mls @ 200 mls/hr 06/15/21 09:00 06/17/21 10:33 Chloride IV 06/18/21 09:29 Infused DAILY JORDIN Infusion Ondansetron HCl 4 mg 06/13/21 19:48 Ondansetron Odt 4 Mg Tablet TL Q6HR PRN Nausea / Vomiting Ondansetron HCl 4 mg 06/13/21 19:48 Ondansetron 4 Mg/2 Ml Vial IVP Q6HR PRN Nausea / Vomiting Oxycodone HCl 5 mg 06/13/21 19:48 Oxycodone 5 Mg Tablet PO Q4HR PRN Pain 5 to 7 Sodium Chloride 10 ml 06/13/21 19:48 Sodium Chloride Flush 0.9% 10 Ml Syringe IVP PRN PRN NEEDED PER PROVIDER ORDERS Sodium Chloride 10 ml 06/14/21 01:00 06/17/21 21:44 Sodium Chloride Flush 0.9% 10 Ml Syringe IVP 10 ml 0100,0900,1700 JORDIN Administration Time: 15 minutes spent with direct patient care
[2021-06-18] MEDS: SODIUM CHLORIDE FLUSH 0.9% 10 ML SYRINGE IVP SCH ×3 (01:30→20:52)
[2021-06-18] MEDS: PANTOPRAZOLE 40 MG TABLET PO SCH (06:58)
[2021-06-18] MEDS: ALBUTEROL 1 PUFF INH PRN ×2 (08:21→13:37)
[2021-06-18 09:00] LABS: BASOPHILS % (AUTO) 0.2 %; HCT - HEMATOCRIT 40.9 % (42.0-52.0); LYMPHOCYTES # (AUTO) 1.1 10^3/uL (1.5-3.5); LYMPHOCYTES % (AUTO) 9.2 %; MEAN CORPUSCULAR HEMOGLOBIN 30.1 pg (27.0-31.0); MEAN CORPUSCULAR HGB CONC 34.2 g/dL (32.0-36.0); MEAN PLATELET VOLUME 8.8 fL (7.4-11.4); MONOCYTES # (AUTO) 0.4 10^3/uL (0.0-1.0); MONOCYTES % (AUTO) 3.4 %; NEUTROPHILS # (AUTO) 10.3 10^3/uL (1.5-6.6); NEUTROPHILS % (AUTO) 86.4 %; PLT - PLATELET COUNT 396 10^3/uL (130-450); RED BLOOD COUNT 4.65 10^6/uL (4.70-6.10); RED CELL DISTRIBUTION WIDTH 12.6 % (12.0-15.0); WHITE BLOOD COUNT 11.9 x10^3/uL (4.8-10.8)
[2021-06-18] MEDS ORDERED: IPRATROPIUM/ALBUTEROL 3 ML NEB INH SCH (09:00)
[2021-06-18 09:17] LABS: CALCIUM 9.3 mg/dL (8.5-10.3); CREATININE 1.1 mg/dL (0.6-1.2); CRP - C-REACTIVE PROTEIN 6.7 mg/dL (0-1.0); POTASSIUM 3.8 mmol/L (3.5-5.0)
[2021-06-18] MEDS: amLODIPine 5 MG TABLET PO SCH (09:23)
[2021-06-18] MEDS: ENOXAPARIN 40 MG/0.4 ML SYRINGE SUBQ SCH (09:23)
[2021-06-18] MEDS: FINASTERIDE 5 MG TABLET PO SCH (09:23)
[2021-06-18] MEDS: CHOLECALCIFEROL 25 MCG TABLET PO SCH (09:23)
[2021-06-18] MEDS: DEXAMETHASONE 4 MG/ML VIAL IVP SCH (09:24)
[2021-06-18] MEDS: REMDESIVIR 100MG VIAL 100 MG in SODIUM CHLORIDE 0.9% 100ML 100 ML IV SCH (09:26)
--- NOTE | 2021-06-18 16:44 | PROVIDER PROGRESS NOTE ---
Assessment/Plan - Problem List (1) Acute respiratory failure with hypoxia Assessment/Plan: due to COVID-19, patient's respiratory status is improved, patient had 96% sats on 3 L oxygen. We will continue supplemental oxygen as needed, continue treated with COVID-19 (2) COVID-19 virus infection Assessment/Plan: with finish IV remdesivir, IV Decadron, lovenox, and Mucinex, incentive spirometry, suppl O2 and proning to sleep (3) Hypertension pt show bradycatrdicat 49 and 55. We will stop his beta-leonor and start Amlodipine for blood pressure control. (4) Acute kidney injury superimposed on chronic kidney disease Assessment/Plan: stable Avoid nephrotoxins. Follow BMP daily (5) Cognitive deficits Assessment/Plan: confused and cognitive deficits. pt also show "sundowning". He tried to get out of bed on his own and with the bed rail down, he leaned on his bedside table which is on wheels and he fell out of bed, landing on his buttocks. pt denies pain or injury Will order out of bed to chair only with assistance so that an alert occurs if he tries to get out of bed alone. He may need PT for evaluating his gait and whether it is safe for him to return home to live with his . (6) Fall during current hospitalization Last evening he had "sundowning". He tried to get out of bed on his own and with the bed rail down, he leaned on his bedside table which is on wheels and he fell out of bed, landing on his buttocks. He was seen by the Foreign Language Teacher, no CT head was needed. pt denies pain or injury Will add order for out of bed with assistance. He may need a PT evaluation while here (7) BPH (benign prostatic hyperplasia) continue Proscar has been ordered to start here, which will also help with the blood pressure. (8) Obstructive sleep apnea on CPAP Assessment/Plan: His home CPAP is ordered to be used here (9) Restless leg syndrome Assessment/Plan: continue home meds - Current Meds Current Meds: Current Medications Generic Name Dose Route Start Last Admin Trade Name Freq PRN Reason Stop Dose Admin Acetaminophen 650 mg 06/13/21 19:48 06/18/21 09:22 Acetaminophen 325 Mg Tablet PO 650 mg Q4HR PRN Administration Pain 1 to 4 Albuterol 2 puffs 06/18/21 08:02 06/18/21 13:37 Albuterol 1 Puff INH 2 puffs Q4HR PRN Administration Wheezing Amlodipine Besylate 5 mg 06/18/21 09:00 06/18/21 09:23 Amlodipine 5 Mg Tablet PO 5 mg DAILY JORDIN Administration Carbidopa/Levodopa 1 tab 06/14/21 21:00 06/17/21 21:43 Carbidopa/Levodopa 25 Mg/100 Mg Tablet PO 1 tab HS JORDIN Administration Cholecalciferol 100 mcg 06/17/21 09:00 06/18/21 09:23 Cholecalciferol 25 Mcg Tablet PO 100 mcg DAILY JORDIN Administration Dexamethasone 6 mg 06/14/21 07:45 06/18/21 09:24 Dexamethasone 4 Mg/Ml Vial IVP 6 mg DAILY JORDIN Administration Enoxaparin Sodium 40 mg 06/14/21 09:00 06/18/21 09:23 Enoxaparin 40 Mg/0.4 Ml Syringe SUBQ 40 mg DAILY JORDIN Administration Finasteride 5 mg 06/14/21 09:00 06/18/21 09:23 Finasteride 5 Mg Tablet PO 5 mg DAILY JORDIN Administration Pantoprazole Sodium 40 mg 06/18/21 07:00 06/18/21 06:58 Pantoprazole 40 Mg Tablet PO 40 mg QDAC JORDIN Administration Sodium Chloride 10 ml 06/14/21 01:00 06/18/21 09:24 Sodium Chloride Flush 0.9% 10 Ml Syringe IVP 10 ml 0100,0900,1700 JORDIN Administration - Lab Result Fish Bone Diagrams: 06/18/21 08:50 06/18/21 08:50 - Additional Planning My Orders: My Active Orders 06/18/21 08:02 Mdi: Albuterol 2 puffs INH Q4HR PRN 06/18/21 09:00 amLODIPine [Norvasc] 5 mg PO DAILY 06/18/21 Lunch Regular Diet [DIET] 06/19/21 05:00 BMP - BASIC METABOLIC PANEL [CHEM] DAILYLAB CBC - COMP BLD CT W/AUTO DIFF [HEME] DAILYLAB CRP - C-REACTIVE PROTEIN [CHEM] DAILYLAB 06/20/21 05:00 BMP - BASIC METABOLIC PANEL [CHEM] DAILYLAB CBC - COMP BLD CT W/AUTO DIFF [HEME] DAILYLAB CRP - C-REACTIVE PROTEIN [CHEM] DAILYLAB 06/21/21 05:00 BMP - BASIC METABOLIC PANEL [CHEM] DAILYLAB CBC - COMP BLD CT W/AUTO DIFF [HEME] DAILYLAB CRP - C-REACTIVE PROTEIN [CHEM] DAILYLAB 06/22/21 05:00 BMP - BASIC METABOLIC PANEL [CHEM] DAILYLAB CBC - COMP BLD CT W/AUTO DIFF [HEME] DAILYLAB 06/23/21 05:00 BMP - BASIC METABOLIC PANEL [CHEM] DAILYLAB CBC - COMP BLD CT W/AUTO DIFF [HEME] DAILYLAB Subjective - Subjective Nursing Reports: Confused Objective Vital Signs: Vital Signs - 24 hr 06/18/21 06/18/21 06/18/21 00:00 08:29 09:20 Temperature 36.5 C Heart Rate 60 Heart Rate [ 52 L Brachial] Heart Rate [ Sitting] Heart Rate [ Supine] Respiratory 20 18 Rate Blood Pressure 167/85 H [Right Brachial artery] Blood Pressure [Sitting] Blood Pressure [Supine] O2 Saturation 90 L 93 06/18/21 06/18/21 06/18/21 12:10 13:39 16:00 Temperature 36.5 C Heart Rate 72 Heart Rate [ 64 Brachial] Heart Rate [ 69 Sitting] Heart Rate [ 48 L Supine] Respiratory 16 24 Rate Blood Pressure 148/66 H [Right Brachial artery] Blood Pressure 164/98 H [Sitting] Blood Pressure 122/69 [Supine] O2 Saturation 96 Oxygen O2 Source Nasal cannula Oxygen Flow Rate 4 I&O (Last 24 Hrs): Intake and Output Totals x24h 06/16/21 06/17/21 06/18/21 23:59 23:59 23:59 Intake Total 1930 640 630 Output Total 525 750 575 Balance 1405 -110 55 General: Alert, No acute distress HEENT: Atraumatic Neck: Supple Lymphatic: no adenopathy Neuro: Alert, Non Focal Cardiovascular: Regular rate, Normal S1, Normal S2 Respiratory: Chest non-tender, No respiratory distress Abdomen: Normal bowel sounds, Soft Extremities: Normal pulses - Results Results: Laboratory Results WBC 11.9 x10^3/uL (4.8-10.8) H 06/18/21 08:50 RBC 4.65 10^6/uL (4.70-6.10) L 06/18/21 08:50 Hgb 14.0 g/dL (14.0-18.0) 06/18/21 08:50 Hct 40.9 % (42.0-52.0) L 06/18/21 08:50 MCV 88.0 fL (80.0-94.0) 06/18/21 08:50 MCH 30.1 pg (27.0-31.0) 06/18/21 08:50 MCHC 34.2 g/dL (32.0-36.0) 06/18/21 08:50 RDW 12.6 % (12.0-15.0) 06/18/21 08:50 Plt Count 396 10^3/uL (130-450) 06/18/21 08:50 MPV 8.8 fL (7.4-11.4) 06/18/21 08:50 Neut # (Auto) 10.3 10^3/uL (1.5-6.6) H 06/18/21 08:50 Lymph # (Auto) 1.1 10^3/uL (1.5-3.5) L 06/18/21 08:50 [place] # (Auto) 0.4 10^3/uL (0.0-1.0) 06/18/21 08:50 Eos # (Auto) 0.0 10^3/uL (0.0-0.7) 06/18/21 08:50 Baso # (Auto) 0.0 10^3/uL (0.0-0.1) 06/18/21 08:50 Absolute Nucleated RBC 0.00 x10^3/uL 06/18/21 08:50 Nucleated RBC % 0.0 /100WBC 06/18/21 08:50 Sodium 136 mmol/L (135-145) 06/18/21 08:50 Potassium 3.8 mmol/L (3.5-5.0) 06/18/21 08:50 Chloride 97 mmol/L (101-111) L 06/18/21 08:50 Carbon Dioxide 26 mmol/L (21-32) 06/18/21 08:50 Anion Gap 13.0 (6-13) 06/18/21 08:50 BUN 25 mg/dL (6-20) H 06/18/21 08:50 Creatinine 1.1 mg/dL (0.6-1.2) 06/18/21 08:50 Estimated GFR (MDRD) 63 (>89) L 06/18/21 08:50 Glucose 125 mg/dL (70-100) H 06/18/21 08:50 Calcium 9.3 mg/dL (8.5-10.3) 06/18/21 08:50 Total Bilirubin 1.4 mg/dL (0.2-1.0) H 06/13/21 18:31 AST 48 IU/L (10-42) H 06/13/21 18:31 ALT 27 IU/L (10-60) 06/13/21 18:31 Alkaline Phosphatase 48 IU/L (42-121) 06/13/21 18:31 Troponin I High Sens 20.1 ng/L (2.3-19.7) H* 06/13/21 23:29 C-Reactive Protein 6.7 mg/dL (0-1.0) H 06/18/21 08:50 B-Natriuretic Peptide 96 pg/mL (5-100) 06/13/21 18:31 Total Protein 6.9 g/dL (6.7-8.2) 06/13/21 18:31 Albumin 3.3 g/dL (3.2-5.5) 06/13/21 18:31 Globulin 3.6 g/dL (2.1-4.2) 06/13/21 18:31 Albumin/Globulin Ratio 0.9 (1.0-2.2) L 06/13/21 18:31 Lipase 67 U/L (22-51) H 06/13/21 18:31 Nasal Adenovirus (PCR) NOT DETECTED 06/13/21 19:30 Nasal B. parapertussis DNA (PCR) NOT DETECTED 06/13/21 19:30 Nasal Coronavir 229E PCR NOT DETECTED 06/13/21 19:30 Nasal Coronavir HKU1 PCR NOT DETECTED 06/13/21 19:30 Nasal Coronavir NL63 PCR NOT DETECTED 06/13/21 19:30 Nasal Coronavir OC43 PCR NOT DETECTED 06/13/21 19:30 Nasal Enterovir/Rhinovir PCR NOT DETECTED 06/13/21 19:30 Nasal Influenza B PCR NOT DETECTED 06/13/21 19:30 Nasal Influenza A PCR NOT DETECTED 06/13/21 19:30 Nasal Parainfluen 1 PCR NOT DETECTED 06/13/21 19:30 Nasal Parainfluen 2 PCR NOT DETECTED 06/13/21 19:30 Nasal Parainfluen 3 PCR NOT DETECTED 06/13/21 19:30 Nasal Parainfluen 4 PCR NOT DETECTED 06/13/21 19:30 Nasal RSV (PCR) NOT DETECTED 06/13/21 19:30 Nasal B.pertussis DNA PCR NOT DETECTED 06/13/21 19:30 Nasal C.pneumoniae (PCR) NOT DETECTED 06/13/21 19:30 Lexi Human Metapneumo PCR NOT DETECTED 06/13/21 19:30 Nasal M.pneumoniae (PCR) NOT DETECTED 06/13/21 19:30 Nasal SARS-CoV-2 (PCR) DETECTED A 06/13/21 19:30 ABX Reporting Has patient been on IV antibiotics over the past 48 hours?: No Current Medications - Current Medications Current Medications: Active Medications Acetaminophen (Acetaminophen 325 Mg Tablet) 650 mg PO Q4HR PRN PRN Reason: Pain 1 to 4 Last Admin: 06/18/21 09:22 Dose: 650 mg Documented by: Albuterol (Albuterol 1 Puff) 2 puffs INH Q4HR PRN PRN Reason: Wheezing Last Admin: 06/18/21 13:37 Dose: 2 puffs Documented by: Amlodipine Besylate (Amlodipine 5 Mg Tablet) 5 mg PO DAILY [facility] Last Admin: 06/18/21 09:23 Dose: 5 mg Documented by: Carbidopa/Levodopa (Carbidopa/Levodopa 25 Mg/100 Mg Tablet) 1 tab PO HS [facility] Last Admin: 06/17/21 21:43 Dose: 1 tab Documented by: Cholecalciferol (Cholecalciferol 25 Mcg Tablet) 100 mcg PO DAILY [facility] Last Admin: 06/18/21 09:23 Dose: 100 mcg Documented by: Dexamethasone (Dexamethasone 4 Mg/Ml Vial) 6 mg IVP DAILY [facility] Last Admin: 06/18/21 09:24 Dose: 6 mg Documented by: Enoxaparin Sodium (Enoxaparin 40 Mg/0.4 Ml Syringe) 40 mg SUBQ DAILY [facility] Last Admin: 06/18/21 09:23 Dose: 40 mg Documented by: Finasteride (Finasteride 5 Mg Tablet) 5 mg PO DAILY [facility] Last Admin: 06/18/21 09:23 Dose: 5 mg Documented by: Fluticasone Propionate (Fluticasone Nasal [place]) 1 sprays LEXI BID PRN PRN Reason: Nasal Congestion Ondansetron HCl (Ondansetron Odt 4 Mg Tablet) 4 mg TL Q6HR PRN PRN Reason: Nausea / Vomiting Ondansetron HCl (Ondansetron 4 Mg/2 Ml Vial) 4 mg IVP Q6HR PRN PRN Reason: Nausea / Vomiting Oxycodone HCl (Oxycodone 5 Mg Tablet) 5 mg PO Q4HR PRN PRN Reason: Pain 5 to 7 Pantoprazole Sodium (Pantoprazole 40 Mg Tablet) 40 mg PO QDAC [facility] Last Admin: 06/18/21 06:58 Dose: 40 mg Documented by: Sodium Chloride (Sodium Chloride Flush 0.9% 10 Ml Syringe) 10 ml IVP PRN PRN PRN Reason: NEEDED PER PROVIDER ORDERS Sodium Chloride (Sodium Chloride Flush 0.9% 10 Ml Syringe) 10 ml IVP 0100,0900,1700 [facility] Last Admin: 06/18/21 09:24 Dose: 10 ml Documented by: Carbidopa/Levodopa [Carbidopa-Levodopa 25-100 Tab] 1 tab PO HS 07/11/13 Metoprolol Tartrate 12.5 mg PO BID 02/13/15 Cholecalciferol (Vitamin D3) [Vitamin D3] 100 mcg PO DAILY 06/14/21 Fluticasone [Flonase] 1 sprays LEXI BID PRN 06/14/21
[2021-06-18] MEDS: CARBIDOPA/LEVODOPA 25 MG/100 MG TABLET PO SCH (20:52)
[2021-06-19] MEDS: SODIUM CHLORIDE FLUSH 0.9% 10 ML SYRINGE IVP SCH ×3 (01:50→22:08)
[2021-06-19 07:40] LABS: CALCIUM 9.3 mg/dL (8.5-10.3); CREATININE 1.1 mg/dL (0.6-1.2); CRP - C-REACTIVE PROTEIN 12.1 mg/dL (0-1.0); POTASSIUM 4.3 mmol/L (3.5-5.0)
[2021-06-19 07:43] LABS: BASOPHILS % (AUTO) 0.1 %; HCT - HEMATOCRIT 40.2 % (42.0-52.0); HGB - HEMOGLOBIN 13.8 g/dL (14.0-18.0); LYMPHOCYTES # (AUTO) 0.6 10^3/uL (1.5-3.5); MEAN CORPUSCULAR HEMOGLOBIN 30.1 pg (27.0-31.0); MEAN CORPUSCULAR HGB CONC 34.3 g/dL (32.0-36.0); MEAN CORPUSCULAR VOLUME 87.8 fL (80.0-94.0); MEAN PLATELET VOLUME 8.9 fL (7.4-11.4); MONOCYTES # (AUTO) 0.4 10^3/uL (0.0-1.0); MONOCYTES % (AUTO) 4.7 %; NEUTROPHILS # (AUTO) 8.3 10^3/uL (1.5-6.6); NEUTROPHILS % (AUTO) 88.6 %; PLT - PLATELET COUNT 317 10^3/uL (130-450); RED BLOOD COUNT 4.58 10^6/uL (4.70-6.10); RED CELL DISTRIBUTION WIDTH 12.6 % (12.0-15.0); WHITE BLOOD COUNT 9.3 x10^3/uL (4.8-10.8)
[2021-06-19] MEDS: PANTOPRAZOLE 40 MG TABLET PO SCH (07:53)
[2021-06-19] MEDS: DEXAMETHASONE 4 MG/ML VIAL IVP SCH (09:12)
[2021-06-19] MEDS: FINASTERIDE 5 MG TABLET PO SCH (09:13)
[2021-06-19] MEDS: ENOXAPARIN 40 MG/0.4 ML SYRINGE SUBQ SCH (09:13)
[2021-06-19] MEDS: amLODIPine 5 MG TABLET PO SCH (09:13)
[2021-06-19] MEDS: CHOLECALCIFEROL 25 MCG TABLET PO SCH (09:13)
--- NOTE | 2021-06-19 13:16 | PROVIDER PROGRESS NOTE ---
Assessment/Plan - Problem List (1) Acute respiratory failure with hypoxia Assessment/Plan: 06/19 94% oxygen saturation on 3 liter of oxygen Today. Continue supplemental oxygen as needed, Continue closely monitor patient respiratory status. due to COVID-19, patient's respiratory status is improved, patient had 96% sats on 3 L oxygen. We will continue supplemental oxygen as needed, continue treated with COVID-19 (2) COVID-19 virus infection Assessment/Plan: 06/19, Finished remdesivir on today, continue Decadron for another 5 days, continue Lovenox, Mucinex, and incentive spirometry, suppl O2 and proning to sleep with finish IV remdesivir, IV Decadron, lovenox, and Mucinex, incentive spirometry, suppl O2 and proning to sleep (3) Hypertension 06/19 stable, continue amlodipine, and vital signs monitor pt show bradycatrdicat 49 and 55. We will stop his beta-leonor and start Amlodipine for blood pressure control. (4) Acute kidney injury superimposed on chronic kidney disease Assessment/Plan: stable Avoid nephrotoxins. Follow BMP daily (5) Cognitive deficits Assessment/Plan: confused and cognitive deficits. pt also show "sundowning". He tried to get out of bed on his own and with the bed rail down, he leaned on his bedside table which is on wheels and he fell out of bed, landing on his buttocks. pt denies pain or injury Will order out of bed to chair only with assistance so that an alert occurs if he tries to get out of bed alone. He may need PT for evaluating his gait and whether it is safe for him to return home to live with his . (6) Fall during current hospitalization Last evening he had "sundowning". He tried to get out of bed on his own and with the bed rail down, he leaned on his bedside table which is on wheels and he fell out of bed, landing on his buttocks. He was seen by the Clerk Secretary, no CT head was needed. pt denies pain or injury Will add order for out of bed with assistance. He may need a PT evaluation while here (7) BPH (benign prostatic hyperplasia) continue Proscar has been ordered to start here, which will also help with the blood pressure. (8) Obstructive sleep apnea on CPAP Assessment/Plan: His home CPAP is ordered to be used here (9) Restless leg syndrome Assessment/Plan: continue home meds - Current Meds Current Meds: Current Medications Generic Name Dose Route Start Last Admin Trade Name [place] PRN Reason Stop Dose Admin Acetaminophen 650 mg 06/13/21 19:48 06/18/21 09:22 Acetaminophen 325 Mg Tablet PO 650 mg Q4HR PRN Administration Pain 1 to 4 Albuterol 2 puffs 06/18/21 08:02 06/18/21 13:37 Albuterol 1 Puff INH 2 puffs Q4HR PRN Administration Wheezing Amlodipine Besylate 5 mg 06/18/21 09:00 06/19/21 09:13 Amlodipine 5 Mg Tablet PO 5 mg DAILY JORDIN Administration Carbidopa/Levodopa 1 tab 06/14/21 21:00 06/18/21 20:52 Carbidopa/Levodopa 25 Mg/100 Mg Tablet PO 1 tab HS JORDIN Administration Cholecalciferol 100 mcg 06/17/21 09:00 06/19/21 09:13 Cholecalciferol 25 Mcg Tablet PO 100 mcg DAILY JORDIN Administration Dexamethasone 6 mg 06/14/21 07:45 06/19/21 09:12 Dexamethasone 4 Mg/Ml Vial IVP 6 mg DAILY JORDIN Administration Enoxaparin Sodium 40 mg 06/14/21 09:00 06/19/21 09:13 Enoxaparin 40 Mg/0.4 Ml Syringe SUBQ 40 mg DAILY JORDIN Administration Finasteride 5 mg 06/14/21 09:00 06/19/21 09:13 Finasteride 5 Mg Tablet PO 5 mg DAILY JORDIN Administration Pantoprazole Sodium 40 mg 06/18/21 07:00 06/19/21 07:53 Pantoprazole 40 Mg Tablet PO 40 mg QDAC JORDIN Administration Sodium Chloride 10 ml 06/14/21 01:00 06/19/21 09:14 Sodium Chloride Flush 0.9% 10 Ml Syringe IVP 10 ml 0100,0900,1700 JORDIN Administration - Lab Result Fish Bone Diagrams: 06/19/21 07:15 06/19/21 07:15 - Additional Planning My Orders: My Active Orders 06/20/21 05:00 BMP - BASIC METABOLIC PANEL [CHEM] DAILYLAB CBC - COMP BLD CT W/AUTO DIFF [HEME] DAILYLAB CRP - C-REACTIVE PROTEIN [CHEM] DAILYLAB 06/21/21 05:00 BMP - BASIC METABOLIC PANEL [CHEM] DAILYLAB CBC - COMP BLD CT W/AUTO DIFF [HEME] DAILYLAB CRP - C-REACTIVE PROTEIN [CHEM] DAILYLAB 06/22/21 05:00 BMP - BASIC METABOLIC PANEL [CHEM] DAILYLAB CBC - COMP BLD CT W/AUTO DIFF [HEME] DAILYLAB 06/23/21 05:00 BMP - BASIC METABOLIC PANEL [CHEM] DAILYLAB CBC - COMP BLD CT W/AUTO DIFF [HEME] DAILYLAB Subjective - Subjective Nursing Reports: Confused Objective Vital Signs: Vital Signs - 24 hr 06/18/21 06/18/21 06/19/21 13:39 16:00 00:02 Temperature 36.5 C 36.3 C L Heart Rate 72 Heart Rate [ 64 69 Brachial] Respiratory 16 24 20 Rate Blood Pressure 148/66 H [Right Brachial artery] Blood Pressure 139/74 H [Right Radial artery] O2 Saturation 96 92 06/19/21 08:00 Temperature 36.5 C Heart Rate Heart Rate [ 66 Brachial] Respiratory 18 Rate Blood Pressure 107/61 [Right Brachial artery] Blood Pressure [Right Radial artery] O2 Saturation 94 Oxygen O2 Source Nasal cannula Oxygen Flow Rate 4 I&O (Last 24 Hrs): Intake and Output Totals x24h 06/17/21 06/18/21 06/19/21 23:59 23:59 23:59 Intake Total 640 730 700 Output Total 750 700 375 Balance -110 30 325 General: Alert, No acute distress HEENT: Atraumatic Neck: Supple Lymphatic: no adenopathy Neuro: Alert, Non Focal Cardiovascular: Regular rate, Normal S1, Normal S2 Respiratory: Chest non-tender, No respiratory distress Abdomen: Normal bowel sounds, Soft, No tenderness Extremities: Normal pulses - Results Results: Laboratory Results WBC 9.3 x10^3/uL (4.8-10.8) 06/19/21 07:15 RBC 4.58 10^6/uL (4.70-6.10) L 06/19/21 07:15 Hgb 13.8 g/dL (14.0-18.0) L 06/19/21 07:15 Hct 40.2 % (42.0-52.0) L 06/19/21 07:15 MCV 87.8 fL (80.0-94.0) 06/19/21 07:15 MCH 30.1 pg (27.0-31.0) 06/19/21 07:15 MCHC 34.3 g/dL (32.0-36.0) 06/19/21 07:15 RDW 12.6 % (12.0-15.0) 06/19/21 07:15 Plt Count 317 10^3/uL (130-450) 06/19/21 07:15 MPV 8.9 fL (7.4-11.4) 06/19/21 07:15 Neut # (Auto) 8.3 10^3/uL (1.5-6.6) H 06/19/21 07:15 Lymph # (Auto) 0.6 10^3/uL (1.5-3.5) L 06/19/21 07:15 [place] # (Auto) 0.4 10^3/uL (0.0-1.0) 06/19/21 07:15 Eos # (Auto) 0.0 10^3/uL (0.0-0.7) 06/19/21 07:15 Baso # (Auto) 0.0 10^3/uL (0.0-0.1) 06/19/21 07:15 Absolute Nucleated RBC 0.00 x10^3/uL 06/19/21 07:15 Nucleated RBC % 0.0 /100WBC 06/19/21 07:15 Sodium 136 mmol/L (135-145) 06/19/21 07:15 Potassium 4.3 mmol/L (3.5-5.0) 06/19/21 07:15 Chloride 100 mmol/L (101-111) L 06/19/21 07:15 Carbon Dioxide 26 mmol/L (21-32) 06/19/21 07:15 Anion Gap 10.0 (6-13) 06/19/21 07:15 BUN 28 mg/dL (6-20) H 06/19/21 07:15 Creatinine 1.1 mg/dL (0.6-1.2) 06/19/21 07:15 Estimated GFR (MDRD) 63 (>89) L 06/19/21 07:15 Glucose 161 mg/dL (70-100) H 06/19/21 07:15 Calcium 9.3 mg/dL (8.5-10.3) 06/19/21 07:15 Total Bilirubin 1.4 mg/dL (0.2-1.0) H 06/13/21 18:31 AST 48 IU/L (10-42) H 06/13/21 18:31 ALT 27 IU/L (10-60) 06/13/21 18:31 Alkaline Phosphatase 48 IU/L (42-121) 06/13/21 18:31 Troponin I High Sens 20.1 ng/L (2.3-19.7) H* 06/13/21 23:29 C-Reactive Protein 12.1 mg/dL (0-1.0) H 06/19/21 07:15 B-Natriuretic Peptide 96 pg/mL (5-100) 06/13/21 18:31 Total Protein 6.9 g/dL (6.7-8.2) 06/13/21 18:31 Albumin 3.3 g/dL (3.2-5.5) 06/13/21 18:31 Globulin 3.6 g/dL (2.1-4.2) 06/13/21 18:31 Albumin/Globulin Ratio 0.9 (1.0-2.2) L 06/13/21 18:31 Lipase 67 U/L (22-51) H 06/13/21 18:31 Nasal Adenovirus (PCR) NOT DETECTED 06/13/21 19:30 Nasal B. parapertussis DNA (PCR) NOT DETECTED 06/13/21 19:30 Nasal Coronavir 229E PCR NOT DETECTED 06/13/21 19:30 Nasal Coronavir HKU1 PCR NOT DETECTED 06/13/21 19:30 Nasal Coronavir NL63 PCR NOT DETECTED 06/13/21 19:30 Nasal Coronavir OC43 PCR NOT DETECTED 06/13/21 19:30 Nasal Enterovir/Rhinovir PCR NOT DETECTED 06/13/21 19:30 Nasal Influenza B PCR NOT DETECTED 06/13/21 19:30 Nasal Influenza A PCR NOT DETECTED 06/13/21 19:30 Nasal Parainfluen 1 PCR NOT DETECTED 06/13/21 19:30 Nasal Parainfluen 2 PCR NOT DETECTED 06/13/21 19:30 Nasal Parainfluen 3 PCR NOT DETECTED 06/13/21 19:30 Nasal Parainfluen 4 PCR NOT DETECTED 06/13/21 19:30 Nasal RSV (PCR) NOT DETECTED 06/13/21 19:30 Nasal B.pertussis DNA PCR NOT DETECTED 06/13/21 19:30 Nasal C.pneumoniae (PCR) NOT DETECTED 06/13/21 19:30 Lexi Human Metapneumo PCR NOT DETECTED 06/13/21 19:30 Nasal M.pneumoniae (PCR) NOT DETECTED 06/13/21 19:30 Nasal SARS-CoV-2 (PCR) DETECTED A 06/13/21 19:30 ABX Reporting Has patient been on IV antibiotics over the past 48 hours?: No Current Medications - Current Medications Current Medications: Active Medications Acetaminophen (Acetaminophen 325 Mg Tablet) 650 mg PO Q4HR PRN PRN Reason: Pain 1 to 4 Last Admin: 06/18/21 09:22 Dose: 650 mg Documented by: Albuterol (Albuterol 1 Puff) 2 puffs INH Q4HR PRN PRN Reason: Wheezing Last Admin: 06/18/21 13:37 Dose: 2 puffs Documented by: Amlodipine Besylate (Amlodipine 5 Mg Tablet) 5 mg PO DAILY [facility] Last Admin: 06/19/21 09:13 Dose: 5 mg Documented by: Carbidopa/Levodopa (Carbidopa/Levodopa 25 Mg/100 Mg Tablet) 1 tab PO HS [facility] Last Admin: 06/18/21 20:52 Dose: 1 tab Documented by: Cholecalciferol (Cholecalciferol 25 Mcg Tablet) 100 mcg PO DAILY [facility] Last Admin: 06/19/21 09:13 Dose: 100 mcg Documented by: Dexamethasone (Dexamethasone 4 Mg/Ml Vial) 6 mg IVP DAILY [facility] Last Admin: 06/19/21 09:12 Dose: 6 mg Documented by: Enoxaparin Sodium (Enoxaparin 40 Mg/0.4 Ml Syringe) 40 mg SUBQ DAILY [facility] Last Admin: 06/19/21 09:13 Dose: 40 mg Documented by: Finasteride (Finasteride 5 Mg Tablet) 5 mg PO DAILY [facility] Last Admin: 06/19/21 09:13 Dose: 5 mg Documented by: Fluticasone Propionate (Fluticasone Nasal [place]) 1 sprays LEXI BID PRN PRN Reason: Nasal Congestion Ondansetron HCl (Ondansetron Odt 4 Mg Tablet) 4 mg TL Q6HR PRN PRN Reason: Nausea / Vomiting Ondansetron HCl (Ondansetron 4 Mg/2 Ml Vial) 4 mg IVP Q6HR PRN PRN Reason: Nausea / Vomiting Oxycodone HCl (Oxycodone 5 Mg Tablet) 5 mg PO Q4HR PRN PRN Reason: Pain 5 to 7 Pantoprazole Sodium (Pantoprazole 40 Mg Tablet) 40 mg PO QDAC [facility] Last Admin: 06/19/21 07:53 Dose: 40 mg Documented by: Sodium Chloride (Sodium Chloride Flush 0.9% 10 Ml Syringe) 10 ml IVP PRN PRN PRN Reason: NEEDED PER PROVIDER ORDERS Sodium Chloride (Sodium Chloride Flush 0.9% 10 Ml Syringe) 10 ml IVP 0100,0900,1700 [facility] Last Admin: 06/19/21 09:14 Dose: 10 ml Documented by: Carbidopa/Levodopa [Carbidopa-Levodopa 25-100 Tab] 1 tab PO HS 07/11/13 Metoprolol Tartrate 12.5 mg PO BID 02/13/15 Cholecalciferol (Vitamin D3) [Vitamin D3] 100 mcg PO DAILY 06/14/21 Fluticasone [Flonase] 1 sprays LEXI BID PRN 06/14/21
[2021-06-19] MEDS: CARBIDOPA/LEVODOPA 25 MG/100 MG TABLET PO SCH (22:06)
[2021-06-20] MEDS: SODIUM CHLORIDE FLUSH 0.9% 10 ML SYRINGE IVP SCH ×3 (00:10→17:06)
[2021-06-20] MEDS: PANTOPRAZOLE 40 MG TABLET PO SCH (05:57)
[2021-06-20 07:44] LABS: BASOPHILS % (AUTO) 0.1 %; HCT - HEMATOCRIT 37.5 % (42.0-52.0); HGB - HEMOGLOBIN 12.7 g/dL (14.0-18.0); LYMPHOCYTES # (AUTO) 0.7 10^3/uL (1.5-3.5); LYMPHOCYTES % (AUTO) 6.9 %; MEAN CORPUSCULAR HEMOGLOBIN 30.2 pg (27.0-31.0); MEAN CORPUSCULAR HGB CONC 33.9 g/dL (32.0-36.0); MEAN CORPUSCULAR VOLUME 89.3 fL (80.0-94.0); MEAN PLATELET VOLUME 8.9 fL (7.4-11.4); MONOCYTES # (AUTO) 0.6 10^3/uL (0.0-1.0); MONOCYTES % (AUTO) 5.6 %; NEUTROPHILS # (AUTO) 8.6 10^3/uL (1.5-6.6); NEUTROPHILS % (AUTO) 86.4 %; PLT - PLATELET COUNT 314 10^3/uL (130-450); RED CELL DISTRIBUTION WIDTH 12.8 % (12.0-15.0)
[2021-06-20 08:59] LABS: CREATININE 1.1 mg/dL (0.6-1.2); CRP - C-REACTIVE PROTEIN 9.1 mg/dL (0-1.0); POTASSIUM 4.9 mmol/L (3.5-5.0)
[2021-06-20] MEDS: CHOLECALCIFEROL 25 MCG TABLET PO SCH (09:37)
[2021-06-20] MEDS: ENOXAPARIN 40 MG/0.4 ML SYRINGE SUBQ SCH (09:37)
[2021-06-20] MEDS: DEXAMETHASONE 4 MG/ML VIAL IVP SCH (09:38)
[2021-06-20] MEDS: FINASTERIDE 5 MG TABLET PO SCH (09:38)
[2021-06-20] MEDS ORDERED: ATROPINE ABBOJECT 1 MG/10 ML SYRINGE IVP ONE (12:00)
[2021-06-20] MEDS ORDERED: SODIUM CHLORIDE 0.9% 1,000 ML IV SCH ×2 (12:00→18:00)
[2021-06-20] MEDS ORDERED: fentaNYL 100 MCG/2 ML VIAL ONE (14:49)
--- NOTE | 2021-06-20 14:50 | PROVIDER PROGRESS NOTE ---
Hospitalist Cross-cover Note - Cross-Cover Note Cross-Cover Note: I called pt's , and pt's daughter Awilda. Awilda is pt's DPOA. she confirmed pt's code status is full code, definitely with CPR, and incubate for a few days then discuss with DPOA for the next care direction.
[2021-06-20] MEDS ORDERED: MIDAZOLAM 2 MG/2 ML VIAL ONE (14:54)
[2021-06-20] MEDS ORDERED: fentaNYL 100 MCG/2 ML VIAL IVP ONE (15:00)
--- NOTE | 2021-06-20 15:43 | XRAY Report ---
PROCEDURE: Chest for Line Placement INDICATIONS: RT ij PLACEMENT TECHNIQUE: One view of the chest was acquired. COMPARISON: FINDINGS: Surgical changes and devices: The inferior aspect of the right IJ catheter is identified, projecting to the region of the distal SVC. Lungs and pleura: No pleural effusions or pneumothorax. Diffuse bilateral pulmonary infiltrates, rig ht greater than left, possibly progressed since the previous study. Mediastinum: Mediastinal contours appear normal. Heart size is normal. Bones and chest wall: No suspicious bony lesions. Overlying soft tissues appear unremarkable. IMPRESSION: Tip of right IJ catheter projects to the distal SVC. Question interval worsening of bilateral pulmona ry infiltrates, right greater than left. Reviewed by: Zaheer Holm MD on 06/20/2021 3:42 PM PDT Approved by: Zaheer Holm MD on 06/20/2021 3:42 PM PDT Station ID: [id number]
--- NOTE | 2021-06-20 15:49 | ANESTHESIA PROCEDURE NOTE ---
Anesth Central Line Template - Central Line Central Line Preparation: Consent Obtained (Patient awake, and responds appro priately. Consent obtained prior to sedation.), Time out completed, Ultrasound used, Sterile prep and drape Central line location: Right IJ Central line type: Triple lumen Central line catheter tip site resides: Superior vena cava (SVC) Central line aftercare: Chlorhexidine disc placed, Secured, Placement confirmed, No pneumothorax, No complications, Bundle checklist complete, Pt tolerated well Other Info/Details: Called to place central line in a patient who had suffered a cardiac arrest. On arrival, patient was in complete heart block with rate in the mid 20s. Transcutaneous pacing started with capture obtained at 70 Ma, Rate set at 60. Patient's blood pressure improved(was 80/50 manual) with capture to 100-110s systolic. Patient was awake and responding appropriately but uncomfortable with pacing. Verbal consent obtained for central line placement. Afterwards, 50mg of fentanyl and 1mg of versed was given IV for patient comfort. Right IJ vein imaged under ultrasound and accessed with needle, wire advanced with ease. A 20cm triple lumen catheter was inserted over the wire and wire was removed. All ports aspirate and flush with ease. Line sutured in place. Chest xray shows tip in the SVC. CODY Mcnulty placed central line under my direct supervision.
[2021-06-20 16:11] LABS: BASOPHILS % (AUTO) 0.1 %; EOSINOPHILS % (AUTO) 0.1 %; HCT - HEMATOCRIT 38.3 % (42.0-52.0); HGB - HEMOGLOBIN 12.9 g/dL (14.0-18.0); LYMPHOCYTES # (AUTO) 1.3 10^3/uL (1.5-3.5); LYMPHOCYTES % (AUTO) 9.8 %; MEAN CORPUSCULAR HEMOGLOBIN 30.6 pg (27.0-31.0); MEAN CORPUSCULAR HGB CONC 33.7 g/dL (32.0-36.0); MEAN CORPUSCULAR VOLUME 90.8 fL (80.0-94.0); MEAN PLATELET VOLUME 9.7 fL (7.4-11.4); MONOCYTES % (AUTO) 7.2 %; NEUTROPHILS # (AUTO) 10.9 10^3/uL (1.5-6.6); NEUTROPHILS % (AUTO) 81.2 %; PLT - PLATELET COUNT 348 10^3/uL (130-450); RED BLOOD COUNT 4.22 10^6/uL (4.70-6.10); RED CELL DISTRIBUTION WIDTH 12.8 % (12.0-15.0); VBG BASE EXCESS -4.6 mmol/L (-2 - +2); VBG HCO3 20.1 mmol/L (23-28); VBG OXYGEN SATURATION 77.8 % (60-80); VBG PCO2 36.2 mmHg (41-51); VBG PH 7.363 (7.31-7.41); VBG PO2 51.8 mmHg (25-47); VBG TOTAL CO2 21.2 mmol/L (24-29); WHITE BLOOD COUNT 13.4 x10^3/uL (4.8-10.8)
--- NOTE | 2021-06-20 16:13 | PROVIDER PROGRESS NOTE ---
Subjective - Prog Note Date Prog Note Date: 06/20/21 - Subjective Pt reports feeling: Worse Subjective: nurse report pt suddenly became pale and passed out. check pt's pulse is on 20- 30 arrange. EKG show Second degree AV block with Mobitz type II. Immediately informed pt's DPOA. DPOA hope full code for pt. pt was transferred to ICU and transferred pt care to today MD. Pt was put on transcutaneous pacing at ICU, plan to transfer pt to another hospital to have permanent pacemaker. Current Medications - Current Medications Current Medications: Active Medications Acetaminophen (Acetaminophen 325 Mg Tablet) 650 mg PO Q4HR PRN PRN Reason: Pain 1 to 4 Last Admin: 06/18/21 09:22 Dose: 650 mg Documented by: Albuterol (Albuterol 1 Puff) 2 puffs INH Q4HR PRN PRN Reason: Wheezing Last Admin: 06/18/21 13:37 Dose: 2 puffs Documented by: Carbidopa/Levodopa (Carbidopa/Levodopa 25 Mg/100 Mg Tablet) 1 tab PO [facility] Last Admin: 06/19/21 22:06 Dose: 1 tab Documented by: Cholecalciferol (Cholecalciferol 25 Mcg Tablet) 100 mcg PO DAILY [facility] Last Admin: 06/20/21 09:37 Dose: 100 mcg Documented by: Dexamethasone (Dexamethasone 4 Mg/Ml Vial) 6 mg IVP DAILY [facility] Last Admin: 06/20/21 09:38 Dose: 6 mg Documented by: Enoxaparin Sodium (Enoxaparin 40 Mg/0.4 Ml Syringe) 40 mg SUBQ DAILY [facility] Last Admin: 06/20/21 09:37 Dose: 40 mg Documented by: Finasteride (Finasteride 5 Mg Tablet) 5 mg PO DAILY [facility] Last Admin: 06/20/21 09:38 Dose: 5 mg Documented by: Fluticasone Propionate (Fluticasone Nasal [place]) 1 sprays LEIX BID PRN PRN Reason: Nasal Congestion Ondansetron HCl (Ondansetron Odt 4 Mg Tablet) 4 mg TL Q6HR PRN PRN Reason: Nausea / Vomiting Ondansetron HCl (Ondansetron 4 Mg/2 Ml Vial) 4 mg IVP Q6HR PRN PRN Reason: Nausea / Vomiting Oxycodone HCl (Oxycodone 5 Mg Tablet) 5 mg PO Q4HR PRN PRN Reason: Pain 5 to 7 Pantoprazole Sodium (Pantoprazole 40 Mg Tablet) 40 mg PO [facility] Last Admin: 06/20/21 05:57 Dose: 40 mg Documented by: Sodium Chloride (Sodium Chloride Flush 0.9% 10 Ml Syringe) 10 ml IVP PRN PRN PRN Reason: NEEDED PER PROVIDER ORDERS Sodium Chloride (Sodium Chloride Flush 0.9% 10 Ml Syringe) 10 ml IVP 0100,0900,1700 [facility] Last Admin: 06/20/21 09:40 Dose: 10 ml Documented by: Carbidopa/Levodopa [Carbidopa-Levodopa 25-100 Tab] 1 tab PO HS 07/11/13 Metoprolol Tartrate 12.5 mg PO BID 02/13/15 Cholecalciferol (Vitamin D3) [Vitamin D3] 100 mcg PO DAILY 06/14/21 Fluticasone [Flonase] 1 sprays LEXI BID PRN 06/14/21 Objective - Vital Signs/Intake & Output Vital Signs: Vital Signs x48h Temp Pulse Pulse Resp BP BP Pulse Ox 06/20/21 15:00 60 14 122/78 100 06/20/21 14:50 60 14 100 06/20/21 14:43 60 16 102/60 100 06/20/21 14:35 35 L 14 125/114 H 100 06/20/21 14:32 22 L 22 149/114 H 98 06/20/21 14:04 65 24 76/56 L 100 06/20/21 11:05 77/56 L 99 06/20/21 11:00 48 L 16 118/90 H 99 06/20/21 10:17 96 06/20/21 08:51 36.5 C 56 L 24 110/50 L 97 Intake & Output: Intake & Output 06/17/21 06/18/21 06/19/21 06/20/21 23:59 23:59 23:59 23:59 Intake Total 598 294 8356 Output Total 750 700 625 275 Balance -110 30 665 -275 - Objective General Appearance: positive: Alert, Mild distress. negative: Lethargic Eyes Bilateral: positive: Normal inspection, No lid inflammation ENT: positive: ENT inspection nml, No signs of dehydration. negative: Purulent nasal drainage Neck: positive: Nml inspection, Trachea midline. negative: Thyromegaly, Tracheal deviation Respiratory: positive: Chest non-tender, No respiratory distress Cardiovascular: positive: Regular rate & rhythm, No murmur, Bradycardia Peripheral Pulses: 2+ Radial (R), 2+ Radial (L) Abdomen: positive: Non-tender, Nml bowel sounds, No distention. negative: Tenderness Back: positive: Nml inspection Skin: positive: Color nml, Warm, Dry. negative: Cyanosis Extremities: positive: Non-tender, Nml appearance Neurologic/Psychiatric: positive: Sensation nml. negative: Sensory loss, Facial droop, Slurred/abnml speech - Lab Results Fish Bones: 06/20/21 14:12 06/20/21 14:12 Other Labs: Lab Results x24hrs 06/20/21 06/20/21 Range/Units 07:35 07:35 WBC 10.0 (4.8-10.8) x10^3/uL RBC 4.20 L (4.70-6.10) 10^6/uL Hgb 12.7 L (14.0-18.0) g/dL Hct 37.5 L (42.0-52.0) % MCV 89.3 (80.0-94.0) fL MCH 30.2 (27.0-31.0) pg MCHC 33.9 (32.0-36.0) g/dL RDW 12.8 (12.0-15.0) % Plt Count 314 (130-450) 10^3/uL MPV 8.9 (7.4-11.4) fL Neut # (Auto) 8.6 H (1.5-6.6) 10^3/uL Lymph # (Auto) 0.7 L (1.5-3.5) 10^3/uL [place] # (Auto) 0.6 (0.0-1.0) 10^3/uL Eos # (Auto) 0.0 (0.0-0.7) 10^3/uL Baso # (Auto) 0.0 (0.0-0.1) 10^3/uL Absolute Nucleated RBC 0.00 x10^3/uL Nucleated RBC % 0.0 /100WBC Sodium 132 L (135-145) mmol/L Potassium 4.9 (3.5-5.0) mmol/L Chloride 97 L (101-111) mmol/L Carbon Dioxide 28 (21-32) mmol/L Anion Gap 7.0 (6-13) BUN 30 H (6-20) mg/dL Creatinine 1.1 (0.6-1.2) mg/dL Estimated GFR (MDRD) 63 L (>89) Glucose 158 H (70-100) mg/dL Calcium 9.0 (8.5-10.3) mg/dL C-Reactive Protein 9.1 H (0-1.0) mg/dL ABX Reporting Has patient been on IV antibiotics over the past 48 hours?: No Assessment/Plan - Problem List (1) Cardiac arrest Impression: today afternoon, nurse found pt became pale and passed out. call Blue immediately initiated. pt's SBP is drop to 70s. pt was found to have intermittent pulse but significant bradycardia at HR 20-30. EKG found pt has second degree AV block Mobitz type II. pt was transferred to ICU to have transcutaneous pacing under MD care. MD called another hospital, plan to transfer to have permanent pacer for pt. pt's DPOA was informed all these medical conditions and discussed the care plan, DPOA hope pt have full code at this time now. Dopamine for hypotensive. (2) Mobitz type 2 second degree AV block Impression: pt was found to have Mobitz type 2 AV block, which is likely caused his cardiac arrest. pt is transferred to ICU under MD care, have transcutaneous pacing, plan to transfer to high level to have permanent pacer. natural aging and Covid 19 infection could affect AV conduct. (3) Acute respiratory failure with hypoxia Impression: improved significantly. he reported he feel much better in the morning. pt has no acute respiratory distress now. he had 97% O2 sat on one liter of O2. continue supplement of O2 as needed. (4) COVID-19 virus infection Impression: pt has been on hospital for 7 days, pt finished Covid 19 treatment course. pt is improved and will continue supplement of O2 as needed. (5) Fall during current hospitalization Impression: pt had a fall in hospital four days ago. another provider assessed pt at that t [place]. we continue fall precaution and closely monitor pt Qualifiers: Encounter type: subsequent encounter Qualified Code(s): W19.XXXD - Unspecified fall, subsequent encounter; Y92.239 - Unspecified place in hospital as the place of occurrence of the external cause (6) ALBAN (acute kidney injury) Impression: resolved but this afternoon, after repeat lab, his creatinine increased to 1.6, we will order gently IVF for pt. continue lab monitor, avoid nephrotoxic agent. (7) BPH (benign prostatic hyperplasia) Impression: stable, pt is on proscar Qualifiers: Lower urinary tract symptom presence: symptoms present (8) Hypertension Impression: already hold pt's home meds Metoprolol. continue ICU BP monitor Qualifiers: Hypertension type: primary hypertension Qualified Code(s): I10 - Essential (primary) hypertension
[2021-06-20 16:17] LABS: CALCIUM 9.2 mg/dL (8.5-10.3); CREATININE 1.6 mg/dL (0.6-1.2); POTASSIUM 4.7 mmol/L (3.5-5.0)
[2021-06-20] MEDS ORDERED: DOPamine 800 MG/500 ML 800 MG/500 ML BAG IV SCH (17:00)
[2021-06-20] MEDS: MIDAZOLAM 2 MG/2 ML VIAL IVP PRN ×2 (17:06→20:04)
[2021-06-20] MEDS ORDERED: ATORVASTATIN 40 MG TABLET PO SCH (17:30)
[2021-06-20] MEDS ORDERED: ASPIRIN 325 MG TABLET PO SCH (18:00)
--- NOTE | 2021-06-20 18:06 | PROVIDER PROGRESS NOTE ---
Progress Note June 20, 2021 5:57 PM Greater than 1 hour of direct patient care at the bedside has been provided to this patient. I was called to his room at 2:06 PM due to sudden loss of consciousness. He is a Covid patient that was admitted by me on June 13. He has completed remdesivir and is still completing his Decadron therapy. He is actually been responding to therapy that is supportive. His oxygen requirement has been going down. He was down to 1 L/min nasal cannula and was saturating at 97%. We were thinking of stopping oxygen altogether. On room air he was 96%. The nursing faculty was getting him up in bed, readjusting his bed covers when he tilted his head back, eyes rolled back in his head and he was unresponsive. Momentarily he was without a pulse or a pressure. Code was called. And when I arrived he was unresponsive without a pulse or pressure. This was approximately 45 seconds after the code was called. Chest compressions were started immediately. After 1 less than half a cycle of chest compressions the patient suddenly moaned, started using his hands to remove the aid from doing chest compressions. He was alert, speaking to me. Told me he did not know what happened. By then the code team was starting to get leads on him and assessed the patient. In assessing him, we found him to be in third-degree heart block. Maintaining a pressure of 60 over palpable at times going up to 118 systolic. 2 episodes of third-degree heart block with near asystole resulted in loss of consciousness and eyes rolling back in his head. He was given atropine with good response. Transferred to ICU. In the ICU a central line has been placed. External pacer pads now are going 100%. If we take him off the pacer pads his heart rate slows down to less than 10 bpm. He is getting intermittent Versed because he does not like the pacer pads. Troponin was checked at the time of the rapid response and his troponin is 54,597. EKG shows complete heart block with no acute ST-T wave changes. I have called [facility]. I spoke to Dr. Brasher contact center analyst who asked me to speak to Dr. Benavides. I then spoke to Dr. Benavides on-call who is EP. Unfortunately Dr. Benavides feels that this may beyond their facility take care of. He will be leaving after clinic tomorrow to go on vacation on will not be left to be able to take care of this patient after procedure. He asked me to call [facility] and I was called [facility] transfer [facility]. I have also spent 3 phone conversations with daughter Cindy. At first I updated her on her dad's condition. Second phone call was for my explanation that he was having a heart attack and would have to go to an outside facility. Third phone call was for Cindy to let me know that she spoke to her father on the phone and he wanted everything stopped. I then we examined the patient and went into the room. Asked him if he truly meant for us to take off these pacer pads and to let him . He told me that he did not want to . He was just saying goodbye to his daughters and his in case he did not make it. But he still wanted me to move forward with dontae fritzg to get a pacer placed. He is miserable with the electricity crossing his chest. Right now temperature is 36.5. Pulse is 60 with the external pads. Blood pressure 103/86. Respirations 20. 100% saturation on 15 L. He is alert, oriented to place and time. He is following commands. He seeks reassurance by holding onto my hand and will not let go. He has slow, unlabored respirations. Coarse tubular breath sounds but no crackles at this time. And abdomen is soft, hypoactive bowel sounds, nondistended, nontender. Extremities with no edema. Labs with a rapid response show a sodium of 128, potassium 4.7. BUN has come up to 38. Creatinine is come up to 1.6. Early this morning he was 30 and 1.1. Troponin is 54,597. Assessment/plan NSTEMI Shock Third-degree heart block COVID-19 pneumonia gradually improving I have given him aspirin, started Lovenox 80 mg twice daily, Lipitor. He is not a candidate for beta-leonor. I will continue to move forward trying to get a bed for him at an outside facility. Daughter will speak to him again. I feel very badly for this poor family as they go through this roller coaster of crisis with this unfortunate gentleman.
--- NOTE | 2021-06-20 19:12 | Discharge Plan ---
Discharge Plan Problem Reviewed?: Yes Disposition: 02 Transfer Acute Care Hosp Condition: Critical No Smoking: If you smoke, Please STOP! Call for help. Follow-up with: Ricci Longoria MD [Primary Care Provider] -
--- NOTE | 2021-06-20 19:59 | DISCHARGE SUMMARY ---
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/fall risk with in-hospital low impact fall without injury Discharge Diagnoses with Status of Each Condition: Cardiogenic shock Third-degree heart block Non-ST elevation SD Encephalopathy Hypoxic respiratory failure secondary to Covid pneumonia Acute kidney injury/resolved History of Hypertension Obstructive sleep apnea on CPAP Benign prostatic hypertrophy Restless leg syndrome 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 For details of the admission work-up and findings I refer to the history and physical. - CONSULTS | PROCEDURES Procedures: Cardiologi Dr. Kojo Tse - HOSPITAL COURSE Hospital Course: Patient has been on supplemental oxygen, received remdesivir and steroid. His respiratory status steadily improved, with decreasing oxygen requirement. His hospital course had been complicated by delirium/sundowning. He suffered a low impact mechanical fall which resulted in no injury. By the morning of June 20 the patient's respiratory status was stable, had baseline mental status and was ready to plan discharge. He however had acute decompensation developing severe bradycardia with third-degree heart block and in that setting cardiac syncope/cardiogenic shock. He received short round of CPR, atropine, was started on dopamine drip and transferred to the ICU. He became external pacer dependent. Dr. Maddie Jack coordinated his care extensively and finally the patient was accepted to transfer for higher level of care to receive cardiology consult and to be evaluated for pacemaker implant. Prior to transfer patient's family, daughter Cindy was updated; family and the patient agreed to the transfer. Notably, patient had clear mentation, understood his clinical situation and could make informed decisions. His CODE STATUS remained full code during the hospital stay; although it should be noted that goal of care and level of care discussions were ongoing with patient and with family in light of his critical illness. And is transferring to [facility] with life flight, acutely ill, continued on external pacing and dopamine drip during the transfer. - ALLERGIES Allergies/Adverse Reactions: Allergies Allergy/AdvReac Type Severity Reaction Status Date / Time bacitracin Allergy Rash Verified 06/13/21 17:47 [From Neosporin ([id number])] bacitracin zinc * Allergy Rash Verified 06/13/21 17:47 [From Neosporin ([id number])] Horse/Equine Containing Allergy Rash Verified 06/13/21 17:47 Products neomycin sulfate * Allergy Rash Verified 06/13/21 17:47 [From Neosporin ([id number])] polymyxin B Allergy Rash Verified 06/13/21 17:47 [From Neosporin ([id number])] - MEDICATIONS Home Medications: Ambulatory Orders Medication Instructions Recorded Confirmed Carbidopa/Levodopa 1 tab PO HS 07/11/13 06/14/21 [Carbidopa-Levodopa 25-100 Tab] Metoprolol Tartrate 12.5 mg PO BID 02/13/15 06/14/21 Cholecalciferol (Vitamin D3) 100 mcg PO DAILY 06/14/21 06/14/21 [Vitamin D3] Fluticasone [Flonase] 1 sprays LEXI BID PRN 06/14/21 06/14/21 - PHYSICAL EXAM AT DISCHARGE General Appearance: positive: Alert, Mild distress Respiratory: positive: Other (No increased work of breathing, comfortable on supplemental oxygen, good air entry throughout) Cardiovascular: positive: Other (Heart rate of 60) - LABS Result Diagrams: 06/20/21 14:12 06/20/21 14:12 - TIME SPENT Time Spent in Discharge (Minutes): 35"
[2021-06-20] MEDS: CARBIDOPA/LEVODOPA 25 MG/100 MG TABLET PO SCH (20:29)
[2021-06-20] MEDS ORDERED: ENOXAPARIN 80 MG/0.8 ML SYRINGE SUBQ SCH (21:00)
[2021-06-20 21:05] VITALS: BP 126/80
== END 2021-06-20 21:35 | disposition short-term general hospital (02) | DRG 177 ==
LOC: ED 17:24 → MS2 19:48 → ICU 06-20 14:28
PROVIDERS: ADMIT Specialist; ATTEND Internal Medicine
PROC: XW033E5 Introduction of Remdesivir Anti-infective into Peripheral Vein, Percutaneous Approach, New Technology Group 5 (ICD-10-PCS; principal; 2021-06-14)
PROC: 3E0333Z Introduction of Anti-inflammatory into Peripheral Vein, Percutaneous Approach (ICD-10-PCS; 2021-06-14)
PROC: 5A12012 Performance of Cardiac Output, Single, Manual (ICD-10-PCS; 2021-06-20)
PROC: 02HV33Z Insertion of Infusion Device into Superior Vena Cava, Percutaneous Approach (ICD-10-PCS; 2021-06-20)
DX: U07.1 COVID-19 (principal); J12.82 Pneumonia due to coronavirus disease 2019; R09.02 Hypoxemia; I21.4 Non-ST elevation (NSTEMI) myocardial infarction; R57.0 Cardiogenic shock; J96.01 Acute respiratory failure with hypoxia; Z66 Do not resuscitate; I44.2 Atrioventricular block, complete; G93.40 Encephalopathy, unspecified; N17.9 Acute kidney failure, unspecified; F05 Delirium due to known physiological condition; E78.5 Hyperlipidemia, unspecified; I12.9 Hypertensive chronic kidney disease with stage 1 through stage 4 chronic kidney disease, or unspecified chronic kidney disease; N18.9 Chronic kidney disease, unspecified; K21.9 Gastro-esophageal reflux disease without esophagitis; G47.33 Obstructive sleep apnea (adult) (pediatric); N40.1 Benign prostatic hyperplasia with lower urinary tract symptoms; N39.9 Disorder of urinary system, unspecified; G25.81 Restless legs syndrome; R41.3 Other amnesia; R76.11 Nonspecific reaction to tuberculin skin test without active tuberculosis; E66.01 Morbid (severe) obesity due to excess calories; Z68.26 Body mass index [BMI] 26.0-26.9, adult; J30.9 Allergic rhinitis, unspecified; H91.90 Unspecified hearing loss, unspecified ear; Z91.81 History of falling; Z79.899 Other long term (current) drug therapy
CPT/HCPCS: 36415; 71045; 80048; 80053; 82803; 83690; 83880; 84484; 85025; 86140; 87150; 87631; 93005; 94640; 97161; 97165; 97530; 99284; 99285; A9270; C9399; J1650; J7120; 0202U

== ENCOUNTER 2021-08-13 07:00 | Outpatient (CLI) | payer MEDICARE, OTHER ==
[2021-08-13 12:02] LABS: CALCIUM 9.3 mg/dL (8.5-10.3); CREATININE 0.9 mg/dL (0.6-1.2); POTASSIUM 4.1 mmol/L (3.5-5.0)
== END 2021-08-13 23:59 | disposition home or self-care (01) ==
LOC: LAB.WCP 07:00
PROVIDERS: ATTEND Internal Medicine Clinical Cardiac Electrophysiology
DX: R60.0 Localized edema (principal); I42.9 Cardiomyopathy, unspecified; I25.10 Atherosclerotic heart disease of native coronary artery without angina pectoris; I44.2 Atrioventricular block, complete
CPT/HCPCS: 36415; 80048; 83880

== ENCOUNTER 2021-09-30 12:22 | Outpatient (CLI) | payer MEDICARE, OTHER ==
[2021-09-30 17:31] LABS: BASOPHILS % (AUTO) 0.2 %; EOSINOPHILS # (AUTO) 0.2 10^3/uL (0.0-0.7); EOSINOPHILS % (AUTO) 3.4 %; HCT - HEMATOCRIT 33.7 % (42.0-52.0); LYMPHOCYTES # (AUTO) 1.2 10^3/uL (1.5-3.5); LYMPHOCYTES % (AUTO) 25.7 %; MEAN CORPUSCULAR HEMOGLOBIN 30.9 pg (27.0-31.0); MEAN CORPUSCULAR HGB CONC 32.6 g/dL (32.0-36.0); MEAN CORPUSCULAR VOLUME 94.7 fL (80.0-94.0); MEAN PLATELET VOLUME 9.8 fL (7.4-11.4); MONOCYTES # (AUTO) 0.5 10^3/uL (0.0-1.0); MONOCYTES % (AUTO) 9.7 %; NEUTROPHILS # (AUTO) 2.9 10^3/uL (1.5-6.6); NEUTROPHILS % (AUTO) 60.8 %; PLT - PLATELET COUNT 222 10^3/uL (130-450); RED BLOOD COUNT 3.56 10^6/uL (4.70-6.10); RED CELL DISTRIBUTION WIDTH 12.8 % (12.0-15.0); WHITE BLOOD COUNT 4.8 x10^3/uL (4.8-10.8)
[2021-09-30 17:45] LABS: ALBUMIN 3.8 g/dL (3.2-5.5); CALCIUM 9.2 mg/dL (8.5-10.3); CREATININE 1.2 mg/dL (0.6-1.2); PHOSPHORUS 3.3 mg/dL (2.5-4.6); POTASSIUM 4.3 mmol/L (3.5-5.0)
== END 2021-09-30 12:23 | disposition home or self-care (01) ==
LOC: LAB.N 12:22
PROVIDERS: ATTEND Internal Medicine Cardiovascular Disease
DX: I42.9 Cardiomyopathy, unspecified (principal); I25.10 Atherosclerotic heart disease of native coronary artery without angina pectoris; Z95.0 Presence of cardiac pacemaker; I44.2 Atrioventricular block, complete
CPT/HCPCS: 36415; 80069; 85025

== ENCOUNTER 2021-10-01 08:00 | Outpatient (CLI) | payer MEDICARE, OTHER ==
[2021-10-01 18:06] LABS: PT - PROTHROMBIN TIME 11.3 secs (9.9-12.6)
== END 2021-10-01 23:59 ==
LOC: LAB.N 08:00
PROVIDERS: ATTEND Internal Medicine Cardiovascular Disease
DX: I42.9 Cardiomyopathy, unspecified (principal); I25.10 Atherosclerotic heart disease of native coronary artery without angina pectoris; I44.2 Atrioventricular block, complete; Z95.0 Presence of cardiac pacemaker
CPT/HCPCS: 36415; 85610

== ENCOUNTER 2021-11-22 10:04 | Outpatient (CLI) | payer MEDICARE, OTHER ==
[2021-11-22 12:39] LABS: BASOPHILS % (AUTO) 0.3 %; EOSINOPHILS # (AUTO) 0.1 10^3/uL (0.0-0.7); EOSINOPHILS % (AUTO) 3.4 %; HCT - HEMATOCRIT 34.5 % (42.0-52.0); LYMPHOCYTES # (AUTO) 0.9 10^3/uL (1.5-3.5); LYMPHOCYTES % (AUTO) 27.6 %; MEAN CORPUSCULAR HEMOGLOBIN 28.4 pg (27.0-31.0); MEAN CORPUSCULAR HGB CONC 31.9 g/dL (32.0-36.0); MEAN CORPUSCULAR VOLUME 88.9 fL (80.0-94.0); MEAN PLATELET VOLUME 9.8 fL (7.4-11.4); MONOCYTES # (AUTO) 0.3 10^3/uL (0.0-1.0); MONOCYTES % (AUTO) 8.6 %; NEUTROPHILS % (AUTO) 59.8 %; PLT - PLATELET COUNT 212 10^3/uL (130-450); RED BLOOD COUNT 3.88 10^6/uL (4.70-6.10); RED CELL DISTRIBUTION WIDTH 13.5 % (12.0-15.0); WHITE BLOOD COUNT 3.3 x10^3/uL (4.8-10.8)
[2021-11-22 13:27] LABS: ALBUMIN 3.8 g/dL (3.2-5.5); CALCIUM 9.3 mg/dL (8.5-10.3); CREATININE 1.1 mg/dL (0.6-1.2); PHOSPHORUS 3.3 mg/dL (2.5-4.6); POTASSIUM 4.2 mmol/L (3.5-5.0)
[2021-11-22 13:41] LABS: INR 1.1 (0.8-1.2); PT - PROTHROMBIN TIME 12.6 secs (9.9-12.6)
== END 2021-11-22 10:05 | disposition home or self-care (01) ==
LOC: LAB.N 10:04
PROVIDERS: ATTEND Family Medicine
DX: R60.0 Localized edema (principal); I42.9 Cardiomyopathy, unspecified; I25.10 Atherosclerotic heart disease of native coronary artery without angina pectoris; I44.2 Atrioventricular block, complete
CPT/HCPCS: 36415; 80069; 83880; 85025; 85610

== ENCOUNTER 2022-02-19 08:49 | Outpatient (CLI) | payer MEDICARE, OTHER ==
[2022-02-19 11:37] LABS: BASOPHILS % (AUTO) 0.5 %; EOSINOPHILS # (AUTO) 0.1 10^3/uL (0.0-0.7); EOSINOPHILS % (AUTO) 2.6 %; HCT - HEMATOCRIT 34.9 % (42.0-52.0); LYMPHOCYTES % (AUTO) 24.7 %; MEAN CORPUSCULAR HEMOGLOBIN 27.9 pg (27.0-31.0); MEAN CORPUSCULAR HGB CONC 31.5 g/dL (32.0-36.0); MEAN CORPUSCULAR VOLUME 88.6 fL (80.0-94.0); MEAN PLATELET VOLUME 9.6 fL (7.4-11.4); MONOCYTES # (AUTO) 0.4 10^3/uL (0.0-1.0); NEUTROPHILS # (AUTO) 2.4 10^3/uL (1.5-6.6); NEUTROPHILS % (AUTO) 60.9 %; PLT - PLATELET COUNT 237 10^3/uL (130-450); RED BLOOD COUNT 3.94 10^6/uL (4.70-6.10); RED CELL DISTRIBUTION WIDTH 14.7 % (12.0-15.0); WHITE BLOOD COUNT 3.9 x10^3/uL (4.8-10.8)
[2022-02-19 12:32] LABS: ALBUMIN/GLOBULIN RATIO 1.7 (1.0-2.2); ALKALINE PHOSPHATASE 61 IU/L (42-121); ALT ALANINE AMINOTRANSFERASE 22 IU/L (10-60); AST ASPARTATE AMINOTRANSFERASE 23 IU/L (10-42); BILIRUBIN,TOTAL 1.3 mg/dL (0.2-1.0); BUN - BLOOD UREA NITROGEN 25 mg/dL (6-20); CALCIUM 9.1 mg/dL (8.5-10.3); CARBON DIOXIDE - CO2 27 mmol/L (21-32); CHLORIDE 102 mmol/L (101-111); CHOLESTEROL 213 mg/dL; CREATININE 1.1 mg/dL (0.6-1.2); GFR - MDRD 63 (>89); GLUCOSE 97 mg/dL (70-100); HDL CHOLESTEROL 72 mg/dL; LDL CHOLESTEROL,CALCULATED 132 mg/dL; LDL/HDL RATIO 1.8 (<3.6); POTASSIUM 4.5 mmol/L (3.5-5.0); SODIUM 138 mmol/L (135-145); TOTAL PROTEIN 6.4 g/dL (6.7-8.2); TRIGLYCERIDES 43 mg/dL; VLDL CHOLESTEROL 9 mg/dL
[2022-02-19 12:47] LABS: THYROID STIMULATING HORMONE 1.31 uIU/mL (0.34-5.60)
[2022-02-19 13:03] LABS: ESTIMATED AVERAGE GLUCOSE 123 mg/dL (70-100); HEMOGLOBIN A1c% 5.9 % (4.27-6.07)
== END 2022-02-19 08:50 | disposition home or self-care (01) ==
LOC: LAB.N 08:49
PROVIDERS: ATTEND Family Medicine
DX: I10 Essential (primary) hypertension (principal); I25.10 Atherosclerotic heart disease of native coronary artery without angina pectoris; L40.9 Psoriasis, unspecified; D64.9 Anemia, unspecified; E88.81 Metabolic syndrome and other insulin resistance; G47.33 Obstructive sleep apnea (adult) (pediatric); E78.5 Hyperlipidemia, unspecified; M10.9 Gout, unspecified
CPT/HCPCS: 36415; 80053; 80061; 83036; 83721; 84153; 84443; 85025

== ENCOUNTER 2022-06-27 10:05 | Outpatient (CLI) | payer MEDICARE, OTHER ==
[2022-06-27 13:18] LABS: ALT ALANINE AMINOTRANSFERASE 19 IU/L (10-60); AST ASPARTATE AMINOTRANSFERASE 22 IU/L (10-42); CHOL/HDL RATIO 2.9 (<5.0); CHOLESTEROL 198 mg/dL; CK- CREATINE KINASE 126 IU/L (22-269); HDL CHOLESTEROL 69 mg/dL; LDL CHOLESTEROL,CALCULATED 119 mg/dL; LDL CHOLESTEROL,DIRECT 109 mg/dL; LDL/HDL RATIO 1.7 (<3.6); TRIGLYCERIDES 50 mg/dL; VLDL CHOLESTEROL 10 mg/dL
== END 2022-06-27 10:06 | disposition home or self-care (01) ==
LOC: LAB.N 10:05
PROVIDERS: ATTEND Internal Medicine Cardiovascular Disease
DX: E78.5 Hyperlipidemia, unspecified (principal)
CPT/HCPCS: 36415; 80061; 82550; 83721; 84450; 84460